=== PATIENT | male | born 1950 | race Caucasian/White ===

== ENCOUNTER → 2016-04-16 | Outpatient (CLI) | payer OTHER ==
[~2016-04-16] MED LIST: ATOR80TA PO; CLON0.5T3 PO; GLC/500 PO; HYDR25TA4 PO; LISI-461 PO; MELO15TA4 PO; PRAM0.129 PO; PRLSR20 PO; RABE20TA5 PO; SUMA6KIT; TADA5TAB11 PO; TAMS0.4C38 PO; TRAZ150T64 PO; VALA500T60 PO; [UNRECOGNIZED DRUG - OTHER] TOP
--- NOTE | 2016-04-17 05:10 | PAP/PSG TECHNICIAN REPORT ---
[facility] Locomotive Firer Polysomnogram Report Study name: None Report date: 04/17/2016 Study date: 04/16/2016 Referring Physician: DR. HINES Name: BERNARD GARCIA Interpreting Physician: Bernard Hines M.D. Date of : 1950 Locomotive Firer: Yashira Montes De Oca [facility]. Sex: Male Age: 65 Study Type: PSG Weight: 197 lbs 16.5 in Height: 65 years, Height 5' 4.5" Neck Circum: BMI: 33.29 Medications: AMOXICILLIN 500 MG, BACLOFEN 10 MG, CIALIS 5 MG, CLARITIN 10 MG, CLONAZEPAM 1 MG, DIPEHNOXYLATE-ATROPINE 2.5-0.025 MG, FLOMAX 0.4 MG, FLONASE, HYDROCHLOROTHIAZIDE 25 MG, KETOCONAZOLE 2% SHAMPOO, LIDOCAINE 5% PATCH, LIPITOR 20 MG, LISINOPRIL 10 MG, MELOXICAM 15 MG, METFORMIN 500 MG, NEFAZODONE 100 MG, OMEPRAOZLE 40 MG, PRAMIPEXOLE 0.25 MG, SUMAVEL DOSEPRO, TRAZODONE 100 MG, VALTREX 500 MG, VERAPAMIL 120 MG Patient History 65 yr-old male here for a baseline study. He has a history of migraines, daytime sleepiness, and some snoring. His [place] scale is The test was started on room air. ETCO2 testing was not utilized during this study. Room 1 Parameters Monitored NPSG: E1-M2, E2-M1, Fp1-M2, Fp2-M1, F3-M2, F4-M2, F4-M1, C3-M2, C4-M2, C4-M1, O1-M2, O2-M2, O2-M1, T3-M2, T4-M1, P3-M2, P4-M1, CHIN1, CHIN2, HR, EKG, Legs, PFLOW, SNOR, FLOW, CFLOW, Tidal Volume, THOR, ABDO, SpO2, PLTH, CPRESS, ETCO2 Wave, ETCO2, pH Sleep Architecture Sleep Stages Time at Lights Off 9:34:03 PM STAGES Time (min.) TST (%) Time at Lights On 5:02:33 AM Wake 186.0 -- Total Recording Time (TRT) 448.50 min. N1 42.0 16 Total Sleep Period (TSP) 277.0 min. N2 220.5 84 Total Sleep Time (TST) 262.5min. N3 0.0 0 Awake Time 186.0 min. REM 0.0 0 Wake after Sleep Onset 148.5 min. Sleep Efficiency (SE) 59 % Sleep Onset Latency (LATOYA) 37.5 min. Number of Stage 1 Shifts None Awakenings 19 Stage Changes 82 Number of REM periods N/A REM 0.0 0 REM Latency NONE min. NREM 262.5 100 Body Position Analysis Supine Right Left Side Prone Vertical Total Sleep Time (min.) 265.0 73.0 79.6 152.63 0.0 0.0 Total Sleep Time (%) 42% 28% 30% 58 0% N/A% Total Sleep Time REM (min.) 0.0 0.0 0.0 None 0.0 0.0 Total Sleep Time NREM (min.) 109.9 73.0 79.6 None 0.0 0.0 Intermittent Wake (min.) 155.1 28.8 2.1 None 0.0 0.0 Total Sleep Period (%) 43% None None None None None Arousals Myoclonus (PLM) * Events Count Index Events Count Index Spontaneous 18 4 Events Awake (PLMW) 172 55.5 Respiratory 3 0.7 Events Asleep w/ Arousal (PLMA) 21 4.8 PLM 21 5 Events Asleep w/o Arousal (PLMS) 45 10.3 Snoring 3 1 Total Asleep 66 15.1 Total 45 10 Total 238 32 Respiratory Analysis * CA OA MA CH H RERA Total Count 0 0 0 0 6 0 6 Index 0.0 0.0 0.0 0 1.4 0 1.4 Mean Duration 0.0 0.0 0.0 0.00 17.4 0.0 17.4 Longest Duration 0.0 0.0 0.0 0.00 0.0 0.0 22.3 Respiratory Event Summary Total Supine ~Supine Right Left Prone REM NREM Apneas Count 0 0 0 0 0 N/A N/A 0 Index 0.0 0 0 0.0 0.0 N/A N/A 0 Hypopneas (4% Desat) Count 6 5 1 0 1 N/A N/A 6 Index 1.4 2.7 0 0.0 0.8 N/A N/A 1.4 Apneas & All Hypopneas Count 6 5 1 0 1 N/A N/A 6 Index 1.4 3 0 0 1 N/A N/A 1.4 Respiratory Events (Plastering Supervisor+All Hyp+RERA) Count 6 5 1 0 1 N/A N/A 6 Index 1.4 3 0 0.0 0.8 N/A N/A 1.4 Respiratory Related Arousal Count 3 5 0 0 0 N/A N/A 3 Index 0.7 2 0 0 0 N/A N/A 1 Snoring Analysis Supine Right Left Prone REM NREM Total Snore duration 0.9 min Snores count 10 26 7 N/A N/A 43 43 Snore mean duration 1.3 Sec Snores index 5 21 5 N/A N/A 9.8 9.8 TST with snoring (%) 0.4% Desaturation Event Summary: Minimum %SpO2 Event Count Mean/Min/Max Duration(sec.) Desaturation Index % Time In Bed > 90 21 27.3 / 6.8 / 60.0 3.1 92.9 86 - 90 0 N/A 0.0 7.1 81 - 85 0 N/A 0.0 0.0 76 - 80 0 N/A 0.0 0.0 71 - 75 0 N/A 0.0 0.0 66 - 70 0 N/A 0.0 0.0 61 - 65 0 N/A 0.0 0.0 56 - 60 0 N/A 0.0 0.0 51 - 55 0 N/A 0.0 0.0 < 50 0 N/A 0.0 0.0 Total REM NREM Awake <50% 0.0 min. 0.0 min. 0.0 min. 0.0 min. 51 - 60% 0.0 min. 0.0 min. 0.0 min. 0.0 min. 61 - 70% 0.0 min. 0.0 min. 0.0 min. 0.0 min. 71 - 80% 0.0 min. 0.0 min. 0.0 min. 0.0 min. 81 - 90% 31.0 min. 0.0 min. 29.1 min. 1.9 min. 91 - 100% 406.4 min. 0.0 min. 233.2 min. 173.2 min. Average 92 0 92 93 Minimum SpO2 86 N/A 86 87 Desaturation Event Index 2.8 0.0 3.0 2.6 # Desat. Events below 89% 2 N/A 1 1 Time(%) with Saturation below 89% 0.1 0.0 0.1 0.1 Time(min.) with Saturation below 89% 0.7 0.0 0.3 0.3 Time (mins) REM (mins) NREM (mins) % of TST SpO2 Below 90% 7 N/A N7 0.4 SpO2 Below 88% 1 0 0 0 Heart Rate Analysis Min (bpm) Max (bpm) Average (bpm) Awake 70 88 77 NREM 66 83 73 REM N/A N/A N/A Overall 66 83 73 Supplemental O2 Values Minimum O2 level: None Value Start Time End Time Locomotive Firer Comments Mr. Garcia slept in the right, left, and supine positions. No cardiac arrhythmias were noted. Some PLMs were noted. No bruxism noted. Very little snoring was noted but was scored as a 1 on a scale of 1 through 5. (0=no snoring, 5=snoring loud enough to be heard through a closed door or down the carpenter way) He awoke to use the restroom one time during the night. Mr. Garcia stated that he slept about the same as usual. The final report will be interpreted and signed by a sleep physician. The completed physician report will then be placed in the patient medical record. Therapy (cm H2O) 0 TIB (min.) 448.5 TST (min.) 262.5 Sleep Onset (min.) 37.5 REM Onset From Sleep (min.) NONE Sleep Efficiency % 59 Wakefulness (%) 41 Wakefulness (min.) 186.0 NREM 1 (%) 16 NREM 1 (min.) 42.0 NREM 2 (%) 84 NREM 2 (min.) 220.5 NREM 3 (%) 0 NREM 3 (min.) 0.0 REM (%) 0 REM (min.) 0.0 # Arousals 45 Arousal Index 10 # Snore 43 Snore Index 9.8 AHI 1.4 AHI Supine 3 AHI Non-Supine 0 NREM AHI 1.4 REM AHI N/A RDI 1.4 # Obstructive Apnea 0 # Central Apnea 0 # Mixed Apnea 0 # Hypopneas 6 RERAs 0 Total Respiratory Events 6 Time Below SpO2 89% (min.) 0.3 Mean NREM SpO2 (%) 92 Mean REM SpO2 (%) N/A Mean Sleep SpO2 (%) 92 Min NREM SpO2 (%) 86 Min REM SpO2 (%) N/A Position Supine (min.) 265.0 Position Non-supine (min.) 152.6 LM Index Sleep 15.1 LM Index NREM 15.1 LM Index REM N/A Mean Heart Rate (bpm) 73 Min Heart Rate (bpm) 66
--- NOTE | 2016-04-18 12:09 | POLYSOMNOGRAPH REPORT ---
CLINICAL DATA: A 65-year-old male with history of migraine headaches, daytime sleepiness and loud snoring, referred to the sleep lab for evaluation of possible sleep apnea by Dr. Silva and myself. SLEEP ARCHITECTURE: Total sleep period was 277 minutes. Total sleep time was 262.5 minutes, all non-REM sleep. Sleep latency was delayed at 37.5 minutes. REM was not achieved. Sleep efficiency was severely reduced at 59%. Awake after sleep onset was 148.5 minutes. Sleep consisted of stage N1 of 16%, stage N2 of 84%. AROUSAL DATA: 45 arousals were recorded for an index of 10 per hour. PERIODIC LIMB MOVEMENTS DATA: 66 limb movements during sleep were noted for an index of 15.1 per hour with arousal index of 4.8 per hour. RESPIRATORY DATA: There was no evidence of clinically significant sleep apnea seen. The AHI was 1.4. There were 6 hypopneic episodes. The mean duration of hypopnea was 17.4 seconds. OXIMETRY DATA: No significant hypoxemia was seen. The oxygen lian was 88% during non-REM sleep. Mean saturation was 92%. ELECTROCARDIOGRAM: Heart rates ranged from 66 to 83 beats per minute. No arrhythmias were noted. PROGRAM DIRECTOR SCOUTING'S COMMENTS: The patient slept in the right, left, and supine positions. No bruxism was noted. Snoring was mild, rated 1 on a scale of 1 through 5. The patient awoke to use the restroom once through the night. He awoke early in the morning and then could not get back to sleep. IMPRESSION: No evidence of clinically significant sleep apnea/hypopnea, nocturnal hypoxemia or abnormal limb movements during sleep to explain this patient's symptoms. RECOMMENDATIONS: The patient should continue to practice good sleep hygiene. Treatment for insomnia should be continued. Clinical correlation is needed. MIRA
--- NOTE | 2016-04-25 09:44 | CODING QUERY MEDICAL NECESSITY ---
SUPPORTING DIAGNOSIS NEEDED A supporting diagnosis is required for the test/procedure performed on this patient in order for us to be reimbursed by the patient's insurance. Please provide a supporting diagnosis for the following test/procedure listed below next to the test name along with your signature. *If there is no additional diagnosis for this patient that would support the following test/procedure please document that below next to the test/procedure. Test(s)/Procedure(s) that require a supporting diagnosis: DOS 04/16/16 * Sleep study DIAGNOSIS: Provider Signature: Date: Thank you Bere Parker [facility] Information Management Once completed, please kindly fax back to [phone] For questions please call [phone]
== END | disposition home or self-care (01) ==
LOC: C.NEUR 21:00
PROVIDERS: ATTEND Internal Medicine Pulmonary Disease
DX: F43.10 Post-traumatic stress disorder, unspecified (principal); G25.81 Restless legs syndrome; G47.19 Other hypersomnia; R53.83 Other fatigue

== ENCOUNTER → 2016-04-23 | Outpatient (CLI) | payer OTHER ==
[~2016-04-23] VITALS: Ht 165.1 cm; Wt 92.5 kg
[2016-04-23 12:20] VITALS: BP 142/92; PULSE 87; BMI 34.2
[2016-04-23 12:37] VITALS: BP 142/92; PULSE 87; Ht 165.1 cm; Wt 92.5 kg
== END | disposition home or self-care (01) ==
LOC: C.NEUR 11:50
PROVIDERS: ATTEND Internal Medicine Pulmonary Disease
DX: R53.83 Other fatigue (principal); F43.10 Post-traumatic stress disorder, unspecified; G25.81 Restless legs syndrome

== ENCOUNTER → 2016-05-01 | Outpatient (CLI) | payer OTHER ==
[2016-05-01 13:49] LABS: ESTIMATED AVERAGE GLUCOSE 143 mg/dl; HA1C FLAG Normal (Normal)
[2016-05-01 13:50] LABS: ALT/SGPT 40 U/L (12-78); BLOOD UREA NITROGEN 19 mg/dl (7-18); BUN/CREATININE RATIO 15.4 (10-20); CALCIUM 9.7 mg/dl (8.5-10.1); CARBON DIOXIDE 26 mmol/L (21-32); CHLORIDE 104 mmol/L (98-107); GLUCOSE 147 mg/dl (70-99); POTASSIUM 4.4 mmol/L (3.5-5.1); SODIUM 139 mmol/L (136-145)
[2016-05-01 13:53] LABS: ALB/GLOB RATIO 1.3 (0.9-2); ALKALINE PHOSPHATASE 74 U/L (45-117); AST/SGOT 25 U/L (15-37)
== END | disposition home or self-care (01) ==
LOC: C.LABBC 10:15
PROVIDERS: ATTEND Family Medicine
DX: I10 Essential (primary) hypertension (principal); E11.9 Type 2 diabetes mellitus without complications

== ENCOUNTER → 2016-09-23 | Outpatient (CLI) | payer OTHER ==
[~2016-09-23] MED LIST changes: +FINA5TAB PO; -RABE20TA5 PO; -VALA500T60 PO
[2016-09-23 11:34] LABS: ALT/SGPT 33 U/L (12-78); AST/SGOT 20 U/L (15-37); BLOOD UREA NITROGEN 21 mg/dl (7-18); BUN/CREATININE RATIO 17.5 (10-20); CARBON DIOXIDE 28 mmol/L (21-32); CHLORIDE 107 mmol/L (98-107); CHOLESTEROL 145 mg/dl (0-200); GLUCOSE 155 mg/dl (70-99); SODIUM 144 mmol/L (136-145); TRIGLYCERIDES 87 mg/dl (0-150); VERY LOW DENSITY LIPOPROT CALC 17 mg/dl
[2016-09-23 11:37] LABS: CALCIUM 8.9 mg/dl (8.5-10.1); ESTIMATED AVERAGE GLUCOSE 160 mg/dl; HA1C FLAG Normal (Normal)
[2016-09-23 11:42] LABS: ALB/GLOB RATIO 1.3 (0.9-2); ALKALINE PHOSPHATASE 73 U/L (45-117); CHOLESTEROL/HDL RATIO 2.8; HDL CHOLESTEROL 51 mg/dl; LDL CHOLESTEROL CALCULATED 77 mg/dl
== END | disposition home or self-care (01) ==
LOC: C.LABBC 07:52
PROVIDERS: ATTEND Family Medicine
DX: I10 Essential (primary) hypertension (principal); E78.5 Hyperlipidemia, unspecified; E11.9 Type 2 diabetes mellitus without complications; N40.1 Benign prostatic hyperplasia with lower urinary tract symptoms

== ENCOUNTER → 2016-12-17 | Outpatient (CLI) | payer OTHER ==
[~2016-12-17] MED LIST changes: -FINA5TAB PO
[2016-12-17 10:53] LABS: URINE APPEARANCE CLEAR (CLEAR); URINE BILIRUBIN NEG (NEG); URINE COLOR YELLOW; URINE EPITHELIAL CELL AUTO 0-5 /lpf (0-5); URINE NITRITE NEG (NEG); URINE SPECIFIC GRAVITY 1.024 (1.000-1.030); UROBILINOGEN NEG (NEG); ZZUR CULT IF INDIC CLEAN CATCH NO
[2016-12-17 10:54] LABS: MANUAL MICROSCOPIC REQUIRED? NO; REVIEW REQ? NO
== END | disposition home or self-care (01) ==
LOC: C.LABBC 08:50
PROVIDERS: ATTEND Internal Medicine
DX: R39.15 Urgency of urination (principal); G43.709 Chronic migraine without aura, not intractable, without status migrainosus

== ENCOUNTER → 2016-12-27 | Outpatient (CLI) | payer OTHER ==
--- NOTE | 2016-12-27 10:43 | DIAGNOSTIC IMAGING REPORT ---
RENAL ULTRASOUND CLINICAL HISTORY: Urinary frequency. BPH. COMPARISON STUDY: CT of the abdomen and pelvis March 29, 2016. TECHNIQUE: Sonography of the kidneys and the urinary bladder was performed. FINDINGS: Pre and post void sonography of the bladder was performed. Prevoid volume was 178 cc and post void volume was 29 cc. The prostate is minimally enlarged. The right kidney measures 10.2 x 5.1 x 5.2 cm and the left measures 11.9 x 6.4 x 5 cm. Anechoic renal lesions are noted consistent with cysts. A thin septation is noted within a 3.5 cm left renal cyst. There is moderate renal cortical thinning. Bilateral renal calculi are noted. There is no hydronephrosis. IMPRESSION: 1. Minimal postvoid residual of 29 cc. 2. No hydronephrosis. 3. Bilateral nephrolithiasis. 4. Multiple bilateral renal cysts. 5. Moderate renal cortical thinning. Electronically signed by: Bjorn Reyes M.D. 12/27/2016 10:42 AM Dictated Date/Time: 12/27/2016 10:39 AM
== END | disposition home or self-care (01) ==
LOC: C.ULTRBC 09:48
PROVIDERS: ATTEND Internal Medicine
DX: N40.1 Benign prostatic hyperplasia with lower urinary tract symptoms (principal); R35.0 Frequency of micturition; N20.0 Calculus of kidney; N28.1 Cyst of kidney, acquired; N28.89 Other specified disorders of kidney and ureter

== ENCOUNTER → 2017-05-06 | Outpatient (CLI) | payer OTHER ==
[~2017-05-06] MED LIST changes: +FINA5TAB PO
[2017-05-06 11:01] LABS: BASO % 0.8 %; BASO ABS # 0.05 K/uL (0-0.2); EOS % 4.9 %; HEMATOCRIT 40.8 % (42-52); HEMOGLOBIN 13.9 g/dL (14.0-18.0); IG# 0.01 K/uL (0.00-0.02); LYMPH % 22.4 %; LYMPH ABS # 1.37 K/uL (1.2-3.4); MEAN CELL VOLUME 97.6 fL (80-100); MEAN CORPUSCULAR HEMOGLOBIN 33.3 pg (25-34); MEAN CORPUSCULAR HGB CONC 34.1 g/dl (32-36); MEAN PLATELET VOLUME 11.1 fL (7.4-10.4); MONO % 11.1 %; MONO ABS # 0.68 K/uL (0.11-0.59); NEUT % 60.6 %; NEUT ABS # 3.71 K/uL (1.4-6.5); PLATELET COUNT 190 K/uL (130-400); RED CELL DISTRIBUTION WIDTH CV 13.4 % (11.5-14.5); RED CELL DISTRIBUTION WIDTH SD 47.4 fL (36.4-46.3); WHITE BLOOD COUNT 6.12 K/uL (4.8-10.8)
[2017-05-06 12:21] LABS: HEMOGLOBIN A1C 7.2 % (4.5-5.6)
[2017-05-06 15:07] LABS: ALBUMIN 3.7 gm/dl (3.4-5.0); ALT/SGPT 27 U/L (12-78); BLOOD UREA NITROGEN 16 mg/dl (7-18); CALCIUM 9.2 mg/dl (8.5-10.1); CARBON DIOXIDE 26 mmol/L (21-32); GLUCOSE 167 mg/dl (70-99); SODIUM 139 mmol/L (136-145)
[2017-05-06 15:10] LABS: ALKALINE PHOSPHATASE 74 U/L (45-117); AST/SGOT 19 U/L (15-37); TOTAL PROTEIN 6.7 gm/dl (6.4-8.2)
[2017-05-06 15:35] LABS: CREATININE RANDOM URINE 90.8 mg/dl
== END | disposition home or self-care (01) ==
LOC: C.LABBC 09:14
PROVIDERS: ATTEND Family Medicine Adult Medicine
DX: E11.9 Type 2 diabetes mellitus without complications (principal); I10 Essential (primary) hypertension; E78.5 Hyperlipidemia, unspecified; K21.9 Gastro-esophageal reflux disease without esophagitis

== ENCOUNTER → 2017-08-05 | Outpatient (CLI) | payer OTHER ==
[~2017-08-05] MED LIST changes: -HYDR25TA4 PO; -LISI-461 PO; +MELO-83 PO; -MELO15TA4 PO; +PRAM0.1212 PO; -PRAM0.129 PO; +lisinopril/hctz PO
[2017-08-05 13:57] LABS: HEMOGLOBIN A1C 7.4 % (4.5-5.6)
== END | disposition home or self-care (01) ==
LOC: C.LABBC 11:21
PROVIDERS: ATTEND Urology
DX: N40.1 Benign prostatic hyperplasia with lower urinary tract symptoms (principal); R30.0 Dysuria; E11.9 Type 2 diabetes mellitus without complications

== ENCOUNTER → 2017-11-14 | Outpatient (CLI) | payer OTHER ==
[~2017-11-14] MED LIST changes: -CLON0.5T3 PO; +KLN/5 PO; +LISI20TA55 PO; +OPTIRAY 320 IV PRN; -lisinopril/hctz PO
--- NOTE | 2017-11-14 16:09 | DIAGNOSTIC IMAGING REPORT ---
CT SCAN OF THE ABDOMEN AND PELVIS WITH IV CONTRAST CLINICAL HISTORY: Left lower quadrant abdominal pain. COMPARISON STUDY: Abdominal CT dated 05/30/2015. TECHNIQUE: Following the IV administration of 94 cc of Optiray 320, CT scan of the abdomen and pelvis is performed from the lung bases to the proximal femora. Images are reviewed in the axial, sagittal, and coronal planes. IV contrast was administered without complication. A dose lowering technique was utilized adhering to the principles of ALARA. The examination is degraded by streak artifact from extensive orthopedic spinal hardware. CT DOSE: 841.24 mGycm FINDINGS: Lung bases: The heart is normal in size and without pericardial effusion. The coronary arteries are densely calcified. Scarring/atelectasis is noted at the right lung base. There are tiny calcified granulomas. No airspace consolidation or pleural effusion is seen. Liver: The contrast-enhanced liver is normal in size, contour, and attenuation. There is no intrahepatic biliary ductal dilatation. The hepatic veins and portal veins are patent. Gallbladder: Unremarkable. Spleen: Normal in size and attenuation. Pancreas: Moderately atrophic and grossly unremarkable. Adrenal glands: Unremarkable. Kidneys: The contrast enhanced kidneys are atrophic and without hydronephrosis. The kidneys enhance symmetrically. There are at least 6 nonobstructing right renal calculi measuring up to 6 mm. At least 4 nonobstructing left or a calculi measure up to 5 mm. Bilateral renal cysts measure up to 3.7 cm. Additional subcentimeter cortical hypodensities also likely represent cysts but are too small for definitive characterization. Abdominal vasculature: The abdominal aorta is normal in course and caliber noting mild atherosclerotic calcification. Bowel: There is mild to moderate colonic diverticulosis without CT evidence of acute diverticulitis. No bowel obstruction is seen. The appendix is well-visualized and normal. Peritoneum: There is no intraperitoneal free air or abdominal ascites. Lymphadenopathy: None. Pelvic viscera: The prostate gland is mildly enlarged and heterogeneous. The bladder is normal as visualized. Skeletal structures: The skeletal structures are osteopenic. There is advanced lumbar sacral spondylosis and scoliosis with extensive multilevel thoracolumbar laminectomy change and spinal fusion. Degenerative change is also seen in the hips and sacroiliac joints. No lytic or blastic lesions are seen. IMPRESSION: 1. There are no acute infectious or inflammatory findings in the abdomen or pelvis. 2. There is mild to moderate colonic diverticulosis without CT evidence of acute diverticulitis. 3. There are numerous bilateral nonobstructing renal calculi. 4. Additional findings as above. Electronically signed by: Anton English M.D. 11/14/2017 4:07 PM Dictated Date/Time: 11/14/2017 3:59 PM
== END | disposition home or self-care (01) ==
LOC: C.CTS 12:42
PROVIDERS: ATTEND Family Medicine Adult Medicine
DX: K57.30 Diverticulosis of large intestine without perforation or abscess without bleeding (principal); N20.0 Calculus of kidney

== ENCOUNTER 2021-12-10 10:53 | Inpatient (IN) ==
--- NOTE | 2021-11-28 10:56 | Anesthesiology Consultation ---
Date of Service November 28, 2021 Assessment & Plan (1) Encounter for pre-operative examination: Chart Review Chart Review: Acceptable Risk for Surgery and Patient NOT seen in Pre Admission Testing - Check BSG AM DOS Per nursing assessment 11/27/2021, patient denies any recent travel. No known Covid infection in the past 90 days. Pt is fully vaccinated for Covid. No known Covid positive exposures or Covid related symptoms. Will leave to surgeon's discretion if preop Covid testing needed Cysto,TURP/laser litho 11/12/21= Done under [place] with LMA #4. iGel. Well seated, leak tested History Surgery Operation Date: 12/06/21 08:20 Proposed Procedures p Transurethral Resection Prostate - Ang Zepeda, Height/Weight Height: 5 ft 4 in Weight: 70.307 kg Allergies Allergy/AdvReac Type Severity Reaction Status Date / Time No Known Allergies Allergy U Verified 11/27/21 14:22 Medications Home Medications Medication Instructions Recorded Confirmed Last Taken lidocaine 5 % topical ointment 1 appln topical BID PRN Rash 09/15/18 11/27/21 Unknown multivitamin (Multiple Vitamins 1 tab PO QAM 09/15/18 11/27/21 11/11/21 19:00 tablet) ketoconazole 2 % shampoo 1 appln topical 2XWK PRN Other 02/11/19 11/27/21 11/10/21 cyanocobalamin (vitamin B-12) 1,000 mcg PO QAM 11/01/19 11/27/21 11/11/21 05:00 1,000 mcg tablet lancets (Accu-Chek Fastclix Lancet #100 ea 02/09/20 11/21/21 Unknown Drum) eluxadoline 100 mg tablet (Viberzi) 100 mg PO BID #180 tabs 03/08/20 11/27/21 11/11/21 05:00 1/2 tablet pimecrolimus 1 % topical cream 1 applic topical BID PRN Rash 06/26/20 11/27/21 Unknown metformin 1,000 mg tablet See Rx Instructions PO .COMPLEX 11/13/20 11/27/21 11/11/21 19:00 #225 tabs sumatriptan succinate 6 mg/0.5 mL 6 mg (0.5 mL) subcut .COMPLEX 90 11/28/20 11/27/21 Unknown subcutaneous solution (Imitrex) days #27 mL Accu-Chek Fastclix Lancet Drum #100 ea 04/27/21 11/21/21 Unknown (lancets) Accu-Chek Guide test strips (blood #100 ea 04/27/21 11/21/21 Unknown sugar diagnostic) vortioxetine 10 mg tablet 10 mg PO QPM 06/12/21 11/27/21 11/11/21 19:00 (Trintellix) benzonatate 200 mg capsule 200 mg PO TID PRN cough #90 caps 10/17/21 11/27/21 10/29/21 acitretin 25 mg capsule 25 mg PO QAM 10/24/21 11/27/21 11/10/21 atorvastatin 10 mg tablet 10 mg PO QPM 10/24/21 11/27/21 11/11/21 19:00 desloratadine 5 mg tablet 5 mg PO QAM 10/24/21 11/27/21 11/11/21 05:00 (Clarinex) finasteride 5 mg tablet (Proscar) 5 mg PO QAM 10/24/21 11/27/21 11/11/21 05:00 tamsulosin 0.4 mg capsule (Flomax) 0.8 mg PO QPM 10/24/21 11/27/21 11/11/21 05:00 trazodone 150 mg tablet 300 mg PO HS 10/24/21 11/27/21 11/11/21 19:00 valacyclovir 500 mg tablet 500 mg PO QAM 10/24/21 11/27/21 11/11/21 05:00 (Valtrex) baclofen 10 mg tablet See Rx Instructions .Route 11/02/21 11/27/21 Unknown .COMPLEX #270 tabs clonazepam 1 mg tablet (Klonopin) 1 mg PO BID 11/12/21 11/27/21 11/11/21 19:00 diphenoxylate-atropine 2.5 1 tab PO TID PRN diarrhea 11/12/21 11/27/21 Unknown mg-0.025 mg tablet (Lomotil) fluticasone propionate 50 See Rx Instructions .Route .COMPLEX 11/12/21 11/27/21 11/11/21 05:00 mcg/actuation nasal spray,suspension (Flonase Allergy Relief) lisinopril 20 1.5 tab PO QAM 11/12/21 11/27/21 11/11/21 05:00 mg-hydrochlorothiazide 25 mg tablet (Zestoretic) pramipexole 0.25 mg tablet See Rx Instructions .Route .COMPLEX 11/12/21 11/27/21 11/11/21 19:00 (Mirapex) galcanezumab-gnlm 120 mg/mL 120 mg subcut MONTHLY 90 days #3 mL 11/21/21 11/27/21 Unknown subcutaneous pen injector (Emgality Pen) betamethasone dipropionate 0.05 % 1 applic topical BID psoriasis 11/27/21 11/27/21 Unknown topical ointment meloxicam 15 mg tablet 15 mg PO QAM 11/27/21 11/27/21 Unknown omeprazole 40 mg capsule,delayed 40 mg PO BID 11/27/21 11/27/21 Unknown release rizatriptan 10 mg disintegrating See Rx Instructions PO .COMPLEX 11/27/21 11/27/21 Unknown tablet (Maxalt-NOTCH MACHINE OPERATOR) Past Medical History Medical History Anxiety Benign prostatic hyperplasia with urinary obstruction Cancer BASAL CELL CANCER FACE Chronic GERD Coccydynia HAS BEEN TREAT WITH RFA IN THE PAST History of blood transfusion History of stomach ulcers 50+ years ago HTN (hypertension) Hyperlipidemia IBS (irritable bowel syndrome) Ischial bursitis Lumbar degenerative disc disease Migraine Myofascial pain Post-traumatic stress disorder Restless legs syndrome Type II diabetes mellitus NIDDM Past Family History Family History Father Cardiac disorder Diabetes Prostate cancer Hypertension Mother Diabetes Hypertension Breast cancer Stroke Grandfather Myocardial infarction Denies family history of Ovarian cancer Crohn's disease Lung cancer Colorectal cancer Ulcerative colitis Past Surgical History Surgical History Cervical vertebral fusion 2014 H/O total knee replacement left knee 2016 History of colonoscopy History of esophagogastroduodenoscopy (EGD) History of eyelid surgery History of herniorrhaphy History of lithotripsy bilateral October and November 2021. still has uretral stents in bilaterally at this time. History of lumbar fusion History of tonsillectomy Hx of lithotripsy Social History Smoking Status: Never smoker Do You Dip or Chew Tobacco: No Hx Alcohol Use: Yes Alcohol type: wine alcohol intake frequency: a few times a month Hx Substance Use: No substance use type: does not use Lab Results Anesthesia Preop Results Results Anesthesia Widget: WBC 9.83 K/ul (4.8-10.8) 10/25/21 Hgb 13.6 g/dl (14.0-18.0) L 10/25/21 Hct 40.6 % (40.1-51.0) 10/25/21 Plt 295 K/uL (130-400) 10/25/21 Na 131 mmol/L (136-145) L 10/25/21 K 4.2 mmol/L (3.5-5.1) 10/25/21 Cl 98 mmol/L (98-107) 10/25/21 CO2 23 mmol/L (21-32) 10/25/21 BUN 33 mg/dl (6-23) H 10/25/21 Creat 1.39 mg/dl (0.6-1.4) 10/25/21 Glucose Level 186 mg/dl (70-99(Fasting)) H 10/25/21 POC Glucose 116 mg/dl (70-99) H 11/12/21 Testing Laboratory Results 10/24/21= URINE CULTURE: No growth Electrocardiogram Date: 10/25/21 Sinus tachycardia, rate 109 bpm Chest X-Ray Date: 10/18/21 The lungs are clear. The heart is normal in size. No pleural effusions. No pne umothorax. Scoliosis of the thoracolumbar spine. Spinal fusion hardware seen within the lower thoracic/lumbar spine. IMPRESSION: No acute process. Other Testing Abdomen/pelvis CT 10/16/21 Nonobstructive nephrolithiasis is seen bilaterally with multiple renal cysts noted. Stable perinephric stranding from prior exam. No suspicious findings in this patient with history of hematuria. Carotid doppler of Left ICA (dx: lump on carotid) 06/27/20 1. There is no sonographic evidence of hemodynamically significant stenosis in the left carotid arterial system. 2. Antegrade flow is shown in the lethargy artery. 3. The finding of palpable concern likely corresponds to the carotid bulb. No soft tissue lesion or lymphadenopathy is identified in this region
[~2021-12-10 10:53] MED LIST changes: -ATOR80TA PO; -FINA5TAB PO; -GLC/500 PO; -KLN/5 PO; -LISI20TA55 PO; +LR 15ML/HR IV SCH; -MELO-83 PO; -OPTIRAY 320 IV PRN; -PRAM0.1212 PO; -PRLSR20 PO; -SUMA6KIT; -TADA5TAB11 PO; -TAMS0.4C38 PO; -TRAZ150T64 PO; -[UNRECOGNIZED DRUG - OTHER] TOP; +cefTRIAXone SODIUM 1,000 MG in DEXTROSE 5% 50 ML IV SCH
--- NOTE | 2021-12-10 11:09 | History & Physical Bridge Note ---
Date of Service December 10, 2021 History & Physical Bridge Note I have examined the patient, reviewed the History & Physical and in the interval since the performance of the History & Physical I have noted the following changes of clinical significance: no changes noted Plan to proceed with transurethral resection of prostate.
[2021-12-10] MEDS ORDERED: PROPOFOL IV EMULSION 10 MG/ML 20 ML VIAL IV ONE (11:11)
[2021-12-10] MEDS ORDERED: fentaNYL citrate 100 MCG/2 ML VIAL ONE (11:11)
[2021-12-10] MEDS ORDERED: MIDAZOLAM HCL 1 MG/ML 2ML VIAL ONE (11:11)
[2021-12-10] MEDS ORDERED: ONDANSETRON INJ 2 MG/ML 2 ML VIAL ONE (11:11)
[2021-12-10] MEDS ORDERED: DEXAMETHASONE SOD INJ 4 MG/ML VIAL ONE (11:11)
[2021-12-10] MEDS ORDERED: ATROPINE SULFATE 0.1 MG/ML 10ML SYR IV PRN (11:37)
[2021-12-10] MEDS ORDERED: ePHEDrine sulfate 50 MG/ML AMP IV PRN (11:37)
[2021-12-10] MEDS ORDERED: ONDANSETRON INJ 2 MG/ML 2 ML VIAL IV PRN (11:37)
--- NOTE | 2021-12-10 11:44 | History & Physical Report ---
Date of Service December 10, 2021 Assessment & Plan (1) Benign prostatic hyperplasia with urinary obstruction: (2) Hematuria, microscopic: (3) Bilateral kidney stones: (4) Incontinence: Plan Significant enlargement of prostate with increasing issues. Risks and benefits discussed at length for procedure. These include bleeding, infection, injury to surrounding tissues or organs, and risks associated with anesthesia. Patient states understanding and agrees to proceed. Will sign consent and proceed. Plan for Transurethral resection of prostate. History of Present Illness Primary Care Provider: Khloe Mejia MD Patient here for procedure. No changes in medical issues. No major changes in urinary issues. Continued issues and concerns. No change in pain or discomfort. No severe fevers or chills. No chest pain or shortness of breath. Risks and benefits discussed at length for procedure. These include bleeding, infection, injury to surrounding tissues or organs, and risks associated with anesthesia. Patient and/or family states understanding and agrees to proceed. Consent and supporting information completed. Allergies Allergy/AdvReac Type Severity Reaction Status Date / Time No Known Allergies Allergy U Verified 12/10/21 11:23 Home Medications Medication Instructions Recorded Confirmed Type lidocaine 5 % topical ointment 1 appln topical BID PRN Rash 09/15/18 12/10/21 History multivitamin (Multiple Vitamins 1 tab PO QAM 09/15/18 12/10/21 History tablet) ketoconazole 2 % shampoo 1 appln topical 2XWK PRN Other 02/11/19 12/10/21 History cyanocobalamin (vitamin B-12) 1,000 mcg PO QAM 11/01/19 12/10/21 History 1,000 mcg tablet lancets (Accu-Chek Fastclix Lancet #100 ea 02/09/20 11/21/21 Rx Drum) eluxadoline 100 mg tablet (Viberzi) 100 mg PO BID #180 tabs 03/08/20 12/10/21 Rx pimecrolimus 1 % topical cream 1 applic topical BID PRN Rash 06/26/20 12/10/21 History metformin 1,000 mg tablet See Rx Instructions PO .COMPLEX 11/13/20 12/10/21 Rx #225 tabs Accu-Chek Fastclix Lancet Drum #100 ea 04/27/21 11/21/21 Rx (lancets) Accu-Chek Guide test strips (blood #100 ea 04/27/21 11/21/21 Rx sugar diagnostic) vortioxetine 10 mg tablet 10 mg PO QPM 06/12/21 12/10/21 History (Trintellix) benzonatate 200 mg capsule 200 mg PO TID PRN cough #90 caps 10/17/21 12/10/21 Rx acitretin 25 mg capsule 25 mg PO QAM 10/24/21 12/10/21 History atorvastatin 10 mg tablet 10 mg PO QPM 10/24/21 12/10/21 History desloratadine 5 mg tablet 5 mg PO QAM 10/24/21 12/10/21 History (Clarinex) finasteride 5 mg tablet (Proscar) 5 mg PO QAM 10/24/21 12/10/21 History tamsulosin 0.4 mg capsule (Flomax) 0.8 mg PO QPM 10/24/21 12/10/21 History trazodone 150 mg tablet 300 mg PO HS 10/24/21 12/10/21 History valacyclovir 500 mg tablet 500 mg PO QAM 10/24/21 12/10/21 History (Valtrex) baclofen 10 mg tablet See Rx Instructions .Route 11/02/21 12/10/21 Rx .COMPLEX #270 tabs clonazepam 1 mg tablet (Klonopin) 1 mg PO BID 11/12/21 12/10/21 History diphenoxylate-atropine 2.5 1 tab PO TID PRN diarrhea 11/12/21 12/10/21 History mg-0.025 mg tablet (Lomotil) fluticasone propionate 50 See Rx Instructions .Route .COMPLEX 11/12/21 12/10/21 History mcg/actuation nasal spray,suspension (Flonase Allergy Relief) lisinopril 20 1.5 tab PO QAM 11/12/21 12/10/21 History mg-hydrochlorothiazide 25 mg tablet (Zestoretic) pramipexole 0.25 mg tablet See Rx Instructions .Route .COMPLEX 11/12/21 12/10/21 History (Mirapex) galcanezumab-gnlm 120 mg/mL 120 mg subcut MONTHLY 90 days #3 mL 11/21/21 12/10/21 Rx subcutaneous pen injector (Emgality Pen) betamethasone dipropionate 0.05 % 1 applic topical BID psoriasis 11/27/21 12/10/21 History topical ointment meloxicam 15 mg tablet 15 mg PO QAM 11/27/21 12/10/21 History omeprazole 40 mg capsule,delayed 40 mg PO BID 11/27/21 12/10/21 History release rizatriptan 10 mg disintegrating See Rx Instructions PO .COMPLEX 11/27/21 12/10/21 History tablet (Maxalt-[employer]) PRN Headache sumatriptan succinate 6 mg/0.5 mL 6 mg subcut .COMPLEX PRN Headache 12/10/21 12/10/21 History subcutaneous solution (Imitrex) Past Med/Surg History Medical History Anxiety Benign prostatic hyperplasia with urinary obstruction Cancer BASAL CELL CANCER FACE Chronic GERD Coccydynia HAS BEEN TREAT WITH RFA IN THE PAST History of blood transfusion History of stomach ulcers 50+ years ago HTN (hypertension) Hyperlipidemia IBS (irritable bowel syndrome) Ischial bursitis Lumbar degenerative disc disease Migraine Myofascial pain Post-traumatic stress disorder Restless legs syndrome Type II diabetes mellitus NIDDM Surgical History Cervical vertebral fusion 2014 H/O total knee replacement left knee 2015 History of colonoscopy History of esophagogastroduodenoscopy (EGD) History of eyelid surgery History of herniorrhaphy History of lithotripsy bilateral October and November 2021. still has uretral stents in bilaterally at this time. History of lumbar fusion History of tonsillectomy Hx of lithotripsy Family History Father Cardiac disorder Diabetes Prostate cancer Hypertension Mother Diabetes Hypertension Breast cancer Stroke Grandfather Myocardial infarction Denies family history of Ovarian cancer Crohn's disease Lung cancer Colorectal cancer Ulcerative colitis Social History Smoking Status: Never smoker Second Hand Exposure: No; Do You Dip or Chew Tobacco: No; Tobacco Cessation Education Requested by Patient: No Hx Alcohol Use: Yes (occassionally) Alcohol type: wine Alcohol Intake Frequency: 2-4 x/Month Hx Substance Use: No Preferred Language: Luxembourgish Communication Ability: Effective Visual Impairment: No Limitations Hearing Ability: Normal 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 Required: No Beliefs That Will Affect Care: None marital status: Current Living Situation: Spouse current occupational status: retired How many Children do You have: 0 Other Information That Helps Us Care for You: No Feels Safe at Home: Yes Safety Concerns: Feels Safe At This Time Childhood Exposure to Second-Hand Smoke: Yes caffeine: Yes Dental Care, Regularly: Yes Physical Activity Frequency: Daily Seatbelt Use: always Sunscreen Use: Yes Assistive Devices: None Review of Systems All systems reviewed & are unremarkable except as noted in HPI & below Physical Exam Physical Exam: General: Alert/Arousable. No Acute illness. . HEENT: Inspection normal. Normal inspection of face. Normal inspection of neck. Psychologic: Normal affect/No change in mentation. Respiratory: No use of accessory muscles. No respiratory changes or exacerbation or changes with tachypnea or dyspnea. Cardiovascular: No tachycardia Skin: [place] and Dry. No new rashes or visible lesions. Abdomen: Normal inspection. No guarding. PG Care Time/CCT Total # of Minutes Spent Total Time Spent with Patient: Total time spent is greater than 50% in coordination of care (as documented) at patient's floor/unit and/or counseling patient: Coding Level of Care Code None Diagnoses Benign prostatic hyperplasia with urinary obstruction N40.1; N13.8 Hematuria, microscopic R31.29 Bilateral kidney stones N20.0 Incontinence R32
[2021-12-10] MEDS ORDERED: KETOROLAC 30 MG/ML VIAL ONE (12:21)
[2021-12-10] MEDS ORDERED: ACETAMINOPHEN 1000 MG/100 ML IV IV ONE (12:22)
--- NOTE | 2021-12-10 12:48 | Operative Report ---
[facility] Post Operative Report Pre & Post Diagnosis Operation Date: 12/10/21 13:10 Pre-Op Diagnosis: Benign prostatic hyperplasia with Urinary Obstruction Post-Op Diagnosis: Benign prostatic hyperplasia with Urinary Obstruction I identified the patient and participated in the time-out.: Yes Procedure Operation Date: 12/10/21 13:10 Actual Procedures p Transurethral Resection of Prostate with Bilateral Stent Removal(Not Applicable) - Ang Zepeda DO Surgeon Ang Zepeda, II, DO Special Effects Designer None Estimated Blood Loss 10 Findings Consistent with Post-Op Diagnosis Large Prostate with obstruction. Specimens Prostate adenoma. Drains 22Fr [address] Catheter Anesthesia Type General Complications none Disposition Disposition: Recovery Room Indications Patient with obstruction due to prostate enlargement. Risks and benefits discussed at length. Description of Procedure Patient was consented and brought back to the operating room. Patient was placed under anesthesia in the supine position and moved to the dorsal lithotomy position. Patient was prepped and draped in the regular sterile fashion. A time out was completed. A 30degree Cystoscope was placed into the bladder and the entire bladder was examined. The UO's were identified as well as the bladder neck, trigone, dome, and the other important landmarks. The prostatic urethra and large lobes/adenoma was assessed and the veru and bladder neck identified and area/size was assessed. The resection scope was placed and the fine bipolar loop was selected. Starting at the 5 and 7 o'clock positions, a channel was created from bladder neck to the veru. The lateral lobes were then resected starting at approx 1 and 11 o'clock and moving down to the channel. This resection was taken down to capsule fibers. A small amount of tissue was resected at the 12 o'clock position. The Specimen was removed and sent for analysis. The resection bed and any bleeding areas were fulgurated/cauterized and the entire area inspected. All bleeding was controlled. The bladder was inspected a final time. The bladder was emptied and irrigated. All specimen and debris was removed. The scope was removed with the bladder partially full. A catheter was placed and balloon elevated. This was easily irrigated. The patient was cleaned, aroused from anesthesia, and transferred to the pacu in stable condition having tolerated the procedure well with no complications. I was present and participated in all aspects of the procedure. The patient will be monitored in the PACU until transferred. Plan to keep catheter for approx 10 days with removal in office. Will monitor overnight with continuous bladder irrigation. I attest to the content of the Intraoperative Record and any orders documented therein. Any exceptions are noted below.
[2021-12-10] MEDS: fentaNYL citrate 100 MCG/2 ML VIAL IV PRN ×2 (13:00→13:05)
[2021-12-10] MEDS: HYDROmorphone INJ 2 MG/ML SYR/VIAL IV PRN ×2 (13:48→14:22)
[2021-12-10] MEDS ORDERED: SUMAtriptan succinate 6 MG/0.5 ML VIAL SQ PRN (14:11)
[2021-12-10] MEDS ORDERED: DIPHENOXYLATE/ATROPINE 2.5/0.025MG TAB PO PRN (14:11)
[2021-12-10] MEDS ORDERED: LIDOCAINE 5% OINT 30 GM TUBE TOP PRN (14:11)
[2021-12-10] MEDS ORDERED: PHENAZOPYRIDINE HCL 200 MG TAB PO PRN (14:11)
[2021-12-10] MEDS ORDERED: MoRPHine SULFATE 2 MG/ML CARP IV PRN (14:11)
[2021-12-10] MEDS ORDERED: BENZONATATE 100 MG CAPSULE PO PRN (14:11)
--- NOTE | 2021-12-10 14:44 | Anesthesiology Progress Note ---
Date of Service December 10, 2021 Anesthesia Post Procedure Vital Signs Vital Signs: Temp Pulse Resp BP Pulse Ox O2 Del Method O2 Flow Rate 12/10/21 14:15 83 16 109/76 97 Room Air 12/10/21 14:00 75 14 107/73 96 Room Air 12/10/21 13:45 78 14 116/77 100 Nasal Cannula 2 12/10/21 13:20 79 15 117/79 98 Nasal Cannula 2 12/10/21 13:10 83 16 120/77 100 Nasal Cannula 2 12/10/21 13:00 83 18 123/80 100 Nasal Cannula 4 12/10/21 13:30 36.1 C L 78 17 118/76 99 Nasal Cannula 2 12/10/21 12:51 36.4 C L 87 13 120/88 100 Nasal Cannula 4 12/10/21 11:35 36.7 C 97 H 18 129/91 97 Room Air Pain Intensity Penis: Pain Intensity: 6 Transfer of Care Handoff Completed per policy Notes Mental Status: alert / awake / arousable and participated in evaluation Patient Amnestic to Procedure: Yes Nausea / Vomiting: adequately controlled Pain: adequately controlled Airway Patency, RR, SpO2: stable & adequate BP & HR: stable & adequate Hydration State: stable & adequate Anesthetic Complications: no major complications apparent and Pt Satisfied with anesthetic care
[2021-12-10] MEDS: SODIUM CHLORIDE 0.9% 1000ML 1,000 ML IV SCH (16:01)
[2021-12-10 16:33] LABS: Hematocrit (blood only) 34.5 % (40.1-51.0); Hemoglobin 11.4 g/dl (14.0-18.0); Mean Corpuscular Hemoglobin 32.7 pg (25.0-34.0); Mean Corpuscular Volume 98.9 fL (80.0-100.0); Mean Platelet Volume 10.1 fL (9.4-12.4); Platelet Count 222 K/uL (130-400); RDW Coefficient of Variation 12.7 % (11.5-14.5); RDW Standard Deviation 45.7 fL (36.4-46.3); Red Blood Count 3.49 M/uL (4.63-6.08); White Blood Count 8.13 K/ul (4.8-10.8)
[2021-12-10 16:53] LABS: Albumin Globulin Ratio 1.7 (0.9-2); BUN Creatinine Ratio 15.8 (10-20); Bilirubin,Total 0.4 mg/dl (0.2-1.0); Calcium 9.4 mg/dl (8.5-10.1); Creatinine Clr Calc Pharmacy 37.3 ml/min; Est GFR (African American) 52.7 ml/min; Est GFR (Non-African American) 45.4 ml/min; Globulin 2.4 gm/dl (2.5-4.0); Potassium 4.7 mmol/L (3.5-5.1); Total Protein 6.4 gm/dl (6.0-8.3)
[2021-12-10 17:15] LABS: Basophils # (auto) 0.03 K/uL (0-0.2); Basophils % (auto) 0.4 %; Eosinophils # (auto) 0.02 K/uL (0-0.50); Eosinophils % (auto) 0.2 %; Immature Granulocytes # (auto) 0.04 K/uL (0.00-0.02); Immature Granulocytes % (auto) 0.5 %; Lymphocytes % (auto) 6.2 %; Monocytes # (auto) 0.09 K/uL (0.24-0.82); Monocytes % (auto) 1.1 %; Neutrophils # (auto) 7.45 K/uL (1.4-6.5); Neutrophils % (auto) 91.6 %
[2021-12-10] MEDS: oxyCODONE/ACETAMINOPHEN 5mg/325mg TAB PO PRN ×2 (19:05→23:42)
[2021-12-10] MEDS: clonazePAM 1 MG TAB PO SCH (20:37)
[2021-12-10] MEDS: ceFAZolin 2000MG 2,000 MG/15 ML SYR IV SCH (20:38)
[2021-12-10] MEDS: PANTOprazole 40 MG TAB PO SCH (20:39)
[2021-12-10] MEDS: DOCUSATE SODIUM 100 MG CAP PO SCH (20:39)
[2021-12-10] MEDS ORDERED: ATORVASTATIN 10 MG TAB PO SCH (21:00)
[2021-12-10] MEDS ORDERED: traZODone HCL 100 MG TAB PO SCH (21:00)
[2021-12-10] MEDS ORDERED: TAMSULOSIN HCL 0.4 MG CAP PO SCH (21:00)
[2021-12-11] MEDS: SODIUM CHLORIDE 0.9% 1000ML 1,000 ML IV SCH (04:22)
[2021-12-11] MEDS: ceFAZolin 2000MG 2,000 MG/15 ML SYR IV SCH ×2 (04:23→13:23)
[2021-12-11 06:25] LABS: Hematocrit (blood only) 29.3 % (40.1-51.0); Mean Corpuscular Hemoglobin 33.1 pg (25.0-34.0); Mean Corpuscular Hgb Conc 34.1 g/dL (32.0-36.0); Mean Platelet Volume 10.2 fL (9.4-12.4); Platelet Count 199 K/uL (130-400); RDW Coefficient of Variation 12.5 % (11.5-14.5); RDW Standard Deviation 44.3 fL (36.4-46.3); Red Blood Count 3.02 M/uL (4.63-6.08); White Blood Count 10.12 K/ul (4.8-10.8)
[2021-12-11 07:06] LABS: Albumin Globulin Ratio 1.9 (0.9-2); Albumin Level 3.7 gm/dl (3.4-5.0); BUN Creatinine Ratio 17.8 (10-20); Bilirubin,Total 0.3 mg/dl (0.2-1.0); Calcium 8.6 mg/dl (8.5-10.1); Creatinine Clr Calc Pharmacy 37.3 ml/min; Est GFR (African American) 52.7 ml/min; Est GFR (Non-African American) 45.4 ml/min; Potassium 4.4 mmol/L (3.5-5.1); Total Protein 5.7 gm/dl (6.0-8.3)
--- NOTE | 2021-12-11 08:15 | Urology Progress Note ---
Date of Service December 11, 2021 Assessment & Plan (1) Benign prostatic hyperplasia with urinary obstruction: (2) Hematuria, microscopic: (3) Bilateral kidney stones: (4) Incontinence: Plan Postop day 1 status post TURP. Patient has been recovering well. Is slowly increasing activity. Patient's normal medications are going to be restarted patient will increase activity and diet throughout the day. If patient continues to improve and does not have any major issues will likely be able to discharge later today. Has CBI was turned off by myself this morning we will monitor with nurse practitioners over the rest of the day and if it remains clear can likely be clamped and the patient sent home with the catheter plug in the irrigation port. Patient will be sent home with a bed bag as well as a leg bag for management of urine. We will likely maintain catheter for approximately 10 days. We will have patient follow-up in the office for pathology and catheter removal. Reviewed expectations for recovery. We will plan to continue to monitor Admission and Anticipated Discharge Date Admission Date: December 10, 2021 Subjective Postop from urologic surgery. Patient with issues related to bladder outlet obstruction with large median lobe. Patient had multiple stones that were treated over the summer. Was set up for TURP. Patient has not had major issues and has been tolerating catheter. Has increased activity and patient has been tolerating well, but is having some pain and discomfort. Has been having some bladder discomfort at times. Has tolerated catheter. Has not had severe pain or uncontrollable pain. Patient has been ambulating. Has not had bowel movement or major change. No new nausea or vomiting. Had tolerated anesthesia without major problems Tolerated liquid diet postoperatively. CBI has been running without major issue and currently is at a very slow drip with a very mild light pink color Review of Systems Review of Systems: All systems reviewed & are unremarkable except as noted in HPI & below Physical Exam Physical Exam: General: Alert in no acute distress. HEENT: Normocephalic Atraumatic. Inspection normal. Cranial Nerves 2-12 Grossly intact. Normal inspection of face. Normal inspection of neck. Psychologic: Normal affect. Respiratory: Nonlabored. No use of accessory muscles. No tachypnea or dyspnea. Cardiovascular: No tachycardia Skin: [place] and Dry. No rashes or visible lesions. Extremities/Lymphatics: No edema Abdomen: Appropriately tender. Mild distended. No rebound or guarding. : Urine light pink with CBI on a very low drip Results & Data ([facility]) Vital Signs (Past 12 Hours) Vital Signs Temp Pulse Resp BP Pulse Ox O2 Del Method 12/11/21 07:28 36.5 C 64 16 114/74 98 Room Air 12/11/21 02:30 62 16 106/68 97 Room Air 12/10/21 22:30 36.3 C L 60 16 99/62 L 97 Room Air PG Care Time/CCT Total # of Minutes Spent Total Time Spent with Patient: Total time spent is greater than 50% in coordination of care (as documented) at patient's floor/unit and/or counseling patient: Coding Level of Care Code 86440 Subseq Hosp Care Lvl 2 Diagnoses Benign prostatic hyperplasia with urinary obstruction N40.1; N13.8 Hematuria, microscopic R31.29 Bilateral kidney stones N20.0 Incontinence R32
[2021-12-11] MEDS: clonazePAM 1 MG TAB PO SCH (08:21)
[2021-12-11] MEDS: DOCUSATE SODIUM 100 MG CAP PO SCH (08:21)
[2021-12-11] MEDS: PANTOprazole 40 MG TAB PO SCH (08:23)
[2021-12-11] MEDS ORDERED: metFORMIN HCL 500 MG TAB PO SCH ×2 (09:00→14:00)
[2021-12-11] MEDS ORDERED: FINASTERIDE 5 MG TAB PO SCH (09:00)
[2021-12-11] MEDS ORDERED: CYANOCOBALAMIN (B-12) 500 MCG TABLET PO SCH (09:00)
[2021-12-11] MEDS ORDERED: LISINOPRIL/HCTZ 20/25MG 1 TAB PO SCH (09:00)
[2021-12-11] MEDS ORDERED: MULTIVITAMIN TAB PO SCH (09:00)
--- NOTE | 2021-12-18 14:46 | Discharge Summary ---
Date of Service December 18, 2021 Admission HPI Per Admitting Provider Patient here for procedure. No changes in medical issues. No major changes in urinary issues. Continued issues and concerns. No change in pain or discomfort. No severe fevers or chills. No chest pain or shortness of breath. Risks and benefits discussed at length for procedure. These include bleeding, infection, injury to surrounding tissues or organs, and risks associated with anesthesia. Patient and/or family states understanding and agrees to proceed. Consent and supporting information completed. Admission Exam Per Admitting Provider See H&P Principal Diagnosis BPH with obstruction Discharge Exam General: Alert in no acute distress. HEENT: Normocephalic Atraumatic. Inspection normal. Psychologic: Normal affect. Skin: [place] and Dry. No rashes or visible lesions. Abdomen: Soft Non-distended. No rebound or guarding. Discharge Data Allergies Allergy/AdvReac Type Severity Reaction Status Date / Time No Known Allergies Allergy U Verified 12/10/21 11:23 Procedures Performed Operation Date: 12/06/21 12:50 <No data on this case meets the specified criteria> Operation Date: 12/10/21 13:10 Actual Procedures p Transurethral Resection Prostate with Bilateral Stent Removal(Not Applicable) - Ang Zepeda, DO Hospital Course (1) Benign prostatic hyperplasia with urinary obstruction: (2) Hematuria, microscopic: (3) Bilateral kidney stones: (4) Incontinence: Plan Postop day 1 status post TURP. Patient has been recovering well. Is slowly increasing activity. Patient's normal medications are going to be restarted patient will increase activity and diet throughout the day. If patient continues to improve and does not have any major issues will likely be able to discharge later today. Has CBI was turned off by myself this morning we will monitor with nurse practitioners over the rest of the day and if it remains clear can likely be clamped and the patient sent home with the catheter plug in the irrigation port. Patient will be sent home with a bed bag as well as a leg bag for management of urine. We will likely maintain catheter for approximately 10 days. We will have patient follow-up in the office for pathology and catheter removal. Reviewed expectations for recovery. We will plan to continue to monitor Total Time Total Time Spent Total Time Spent (In Minutes): 10 minutes Total Time Includes: Examination of the Patient, Discharge Planning, Medication Reconciliation and Communication With Other Providers Discharge Plan Discharge Items Patient Disposition: Home - Self-Care Reason For Visit: BPH with Urinary Obstruction Discharge Diagnosis: BPH with urinary obstruction Activity: Per Instructions section Lifting: No more than 10 pounds Bathing Comment: Okay to shower after discharge, no tub bath or soaking Sexual Activity: Wait until after follow-up appointment Exercise/Sports: Wait until after follow-up appointment Driving/Machine Use: No driving while taking prescription pain medication Non-emergency contact: Surgeon and Urologist Call non-emergency contact if: you have any medication questions, your pain is not controlled and you have a fever Follow-up/Referrals: Ang Zepeda DO [Physician] - (Office will call patient with an appointment date and time) Khloe Mejia MD [Primary Care Provider] - [facility],Nurse [FAKE FOR SCHEDULES] - 12/21/21 9:30 am Diet: Carb Consistent or DM2 Addtl Attending Provider Instructions: Please take all medications as prescribed and keep all follow-ups as scheduled. Please call our office at [phone] with any questions, concerns or need to reschedule appointments for any reason. We are happy to assist you. Tips for your recovery at home: Dont be alarmed by brownish or reddish blood or clots in your urine. This is a result of the procedure. This may occur off and on for weeks to months after the procedure but should continue to improve. Drink plenty of fluids during the day (enough to keep your urine very light colored). This will help keep a healthy flow of urine. Do not lift >25 lbs until your followup Avoid constipation. Please use a stool softener (Colace) for the first two weeks after your procedure Be sure to finish the antibiotics as prescribed. If you go home with a catheter, please wash tubing where it enters your body twice daily with mild soap (Dove or Dial). Once your catheter is removed, expect some blood in your urine and some burning when you urinate. You should have an appointment to have this removed, if you do not please call our office to arrange. Pending Studies at Discharge: Yes Studies:: Pathology Stand-Alone Forms: [employer], Smoking Cessation Medications and DC Order Prescriptions: New cephalexin 500 mg capsule 500 mg PO BID 10 Days Qty: 20 0RF docusate sodium [Colace] 100 mg capsule 100 mg PO BID Qty: 60 0RF Rx Instructions: Take twice daily for 2 weeks, then as needed for constipation. oxycodone-acetaminophen [Percocet] 5-325 mg tablet 1 tab PO TID PRN (Reason: pain) Qty: 10 0RF Continued (DME) lancets [Accu-Chek Fastclix Lancet Drum] Misc See Rx Instructions .ROUTE .MEDSUPPLY Qty: 100 5RF Rx Instructions: Test once daily Viberzi 100 mg tablet 100 mg PO BID Qty: 180 2RF Rx Instructions: must administer with a meal/food metformin 1,000 mg tablet See Rx Instructions PO .COMPLEX Qty: 225 3RF Rx Instructions: TAKE 1 TABLET IN THE MORNING, TAKE ONE-HALF (1/2) TABLET AT LUNCH AND TAKE 1 TABLET IN THE EVENING PO ; (DME) lancets [Accu-Chek Fastclix Lancet Drum] Misc See Rx Instructions .Route Qty: 100 3RF Rx Instructions: use to test once daily (DME) Accu-Chek Guide test strips Strip See Rx Instructions .Route Qty: 100 3RF Rx Instructions: use to test once daily baclofen 10 mg tablet See Rx Instructions .ROUTE .COMPLEX Qty: 270 3RF Dose Instruction: TAKE 1 TABLET EVERY 8 HOURS NEEDED FOR PAIN Rx Instructions: TAKE 1 TABLET EVERY 8 HOURS NEEDED FOR PAIN lidocaine 5 % ointment 1 appln TOP BID PRN (Reason: Rash) multivitamin [Multiple Vitamins] tablet 1 tab PO QAM ketoconazole 2 % shampoo 1 appln TOP 2XWK PRN (Reason: Other) Trintellix 10 mg tablet 10 mg PO QPM cyanocobalamin (vitamin B-12) 1,000 mcg tablet 1,000 mcg PO QAM pimecrolimus 1 % cream 1 applic TOP BID PRN (Reason: Rash) Rx Instructions: Apply to areas of the groin twice daily as directed. Emgality Pen 120 mg/mL pen injector 120 mg subcut MONTHLY 90 Days Qty: 3 3RF benzonatate 200 mg capsule 200 mg PO TID PRN (Reason: cough) Qty: 90 3RF atorvastatin 10 mg tablet 10 mg PO QPM acitretin 25 mg capsule 25 mg PO QAM desloratadine [Clarinex] 5 mg tablet 5 mg PO QAM finasteride [Proscar] 5 mg tablet 5 mg PO QAM tamsulosin [Flomax] 0.4 mg capsule 0.8 mg PO QPM valacyclovir [Valtrex] 500 mg tablet 500 mg PO QAM trazodone 150 mg tablet 300 mg PO HS clonazepam [Klonopin] 1 mg tablet 1 mg PO BID diphenoxylate-atropine [Lomotil] 2.5-0.025 mg tablet 1 tab PO TID PRN (Reason: diarrhea) pramipexole [Mirapex] 0.25 mg tablet See Rx Instructions .ROUTE .COMPLEX Rx Instructions: TAKE 1 TABLET EVERY EVENING, ADMINISTER 2 TO 3 HOURS BEFORE BEDTIME lisinopril-hydrochlorothiazide [Zestoretic] 20-25 mg tablet 1.5 tab PO QAM Rx Instructions: TAKE ONE AND ONE-HALF TABLETS DAILY fluticasone propionate [Flonase Allergy Relief] 50 mcg/actuation spray,suspension See Rx Instructions .ROUTE .COMPLEX Rx Instructions: USE 2 SPRAYS NASALLY DAILY meloxicam 15 mg tablet 15 mg PO QAM Rx Instructions: TAKE 1 TABLET DAILY omeprazole 40 mg capsule,delayed release(DR/EC) 40 mg PO BID Rx Instructions: TAKE 1 CAPSULE TWICE A DAY rizatriptan [Maxalt-[employer]] 10 mg tablet,disintegrating See Rx Instructions PO .COMPLEX PRN (Reason: Headache) Rx Instructions: take 1 tab at onset of headache; if no relief may repeat 1 tab in 2hr; max = 3 tabs/day (24hr) PO betamethasone dipropionate 0.05 % ointment 1 applic TOP BID Rx Instructions: Apply to areas of the trunk and extremities twice daily x 2 weeks as directed. sumatriptan succinate [Imitrex] 6 mg/0.5 mL solution 6 mg SQ .COMPLEX PRN (Reason: Headache) Rx Instructions: 6 mg subcut INECT DIRECTED NEED FOR MIGRAINE, LIMIT 3/WEEK and 9 per month; Discharge Orders: Discharge Order (Routine); Ordered 12/11/21 Ordered By: Allyson Rasheed Admission Data Admit Date/Time: 12/10/21 11:53 Attending Provider: Ang Zepeda Admit Provider: Ang Zepeda Primary Care Provider: Khloe Mejia Other Interventions: Discharge Summary Assessment (RN) Last Done: 12/11/21 14:15 Coding Level of Care Code 42445 OBS Care - Discharge Diagnoses Benign prostatic hyperplasia with urinary obstruction N40.1; N13.8 Hematuria, microscopic R31.29 Bilateral kidney stones N20.0 Incontinence R32
== END 2021-12-11 15:07 | disposition home or self-care (01) | DRG 713 ==
LOC: ASU 10:53 → OBSVTOIN 11:53 → INTOOBSV 11:53 → PACUINP 11:53 → 3E 15:55

== ENCOUNTER 2024-01-16 08:55 | Inpatient (IN) ==
[2024-01-16 09:52] LABS: Appearance Urine Clear (Clear); Bilirubin Urine Negative (Negative); Blood Urine Negative (Negative); Color Urine Yellow; Glucose Urine UA 3+ (Negative); Ketones Urine Negative (Negative); Leukocyte Esterase Urine Negative (Negative); Nitrite Urine Negative (Negative); Protein Urine Negative (Negative); Specific Gravity Urine 1.013 (1.000-1.030); Urobilinogen Urine Negative (Negative); pH Urine 5.5 (4.5-7.5)
--- NOTE | 2024-01-16 09:54 | Emergency Department Note ---
Impression & Plan Hyponatremia ED Provider Note ED Provider Note NAME: BERNARD SIMEON III AGE:73 SEX: Male : 1950 ARRIVES VIA: Private vehicle INFORMANT: Patient ED PROVIDER(s): Paula Hoffman DO CHIEF COMPLAINT: Referred by PCP HPI: This is a 73-year-old male presents emerged apartment after he was called by his PCP and told to come to the emergency department due to concern for a low sodium that was found on routine outpatient labs. Patient denies any recent dizziness, weakness, does admit to decreased appetite and intermittent blurred vision which she thought may be related to his history of migraines. He states he does not often have blurred vision with migraines but it has happened previously. He denies any chest pain, shortness of breath, abdominal pain, vomiting or diarrhea. Patient states he does follow with Dr. Mcgraw due to a history of chronic kidney disease. He states when he last saw Dr. Mcgraw he was told to increase his water intake. He states previously he was drinking 1.5 to 2 L/day of water, and after talking with Dr. Mcgraw he increase that to 3 L/day of water. No other change in urine or stools. He denies any lower extremity edema. PAST MEDICAL HISTORY:See Below PAST SURGICAL HISTORY:See Below FAMILY HISTORY:See Below SOCIAL HISTORY:See Below HOME MEDICATIONS:See Below ALLERGIES:See Below VITALS:See Below PHYSICAL EXAMINATION: GENERAL: alert, well appearing, well nourished, no distress, non-toxic EYE EXAM: normal conjunctiva, PERRL and EOM's grossly intact OROPHARYNX: no exudate, no erythema, lips, buccal mucosa, and tongue normal and mucous membranes are moist NECK: supple, no nuchal rigidity, no adenopathy, non-tender LUNGS: Clear to auscultation. Normal chest wall mechanics, no w/r/r HEART: no murmurs, S1 normal and S2 normal ABDOMEN: abdomen soft, non-tender, normo-active bowel sounds, no masses, no rebound or guarding. SKIN: no rashes, petechiae, orbruising UPPER EXTREMITIES: upper extremities are grossly normal. FROM, nml pulses b/l. LOWER EXTREMITIES: No pitting edema. FROM, nml pulses b/l. NEURO EXAM: Normal sensorium, cranial nerves II-XII grossly intact, normal speech, no facial droop,nogross weakness of arms, no gross weakness of legs. Gross sensation intact. No ataxia. Vital Signs: reviewed and remarkable Differential Diagnosis: BRIANNA, dehydration, electrolyte abnormality, dysrhythmia, ACS, occult infection, medication ADR, atypical migraine, as well as others were considered MEDICAL DECISION MAKING: This is a 73-year-old male who presents emergency department after he was referred here by his PCP after abnormal outpatient labs noted hyponatremia. Patient well-appearing here at bedside with no focal symptoms. He was afebrile and hemodynamically stable. Labs drawn and sent, IV established, a few additional labs were sent that were not part of the original outpatient labs, patient monitored on telemetry. Patient started on low maintenance infusion of normal saline awaiting the other labs. Given patient's reported intermittent blurred vision, he was sent for a CT of the head, this was reassuring also. Due to significant hyponatremia which I suspect is delusional from his increased free water intake, case discussed with the hospitalist team for additional evaluation and management. Consultation(s): 1058: Discussed with Dr. Bunn, [facility] hospitalist team, for additional evaluation and management. ER Treatment Provided: See below Diagnostics Interpreted By Me: -Cardiac Monitoring: An order was placed for continuous cardiac monitoring. The monitor shows a rate of 90 with normal sinus rhythm. -Laboratory studies: As stated above and show below. -Imaging studies: CT head: No [facility] Triage Nursing Note Reviewed Prior/Outside Records Reviewed Past Med/Surg History Problem List (Updated 01/16/24 @ 09:54 by Paula Hoffman DO) Hyponatremia (Acute) Encounter for preoperative assessment Nephrolithiasis Flank pain Acute kidney injury Abdominal pain CKD (chronic kidney disease) stage 3, GFR 30-59 ml/min Bilateral tinnitus Sensorineural hearing loss (SNHL) of both ears Chronic cough Anemia Hypervitaminosis D Bilateral kidney stones Myofascial pain Ischial bursitis Irritable bowel syndrome with diarrhea Allergic rhinitis (Acute) Dyslipidemia (Acute) Dysuria (Acute) Fatigue (Acute) Hematuria, microscopic (Acute) Impotence, organic (Acute) Insomnia (Acute) Pilonidal cyst (Acute) HX Coccydynia (Chronic) Chronic migraine (Chronic) Vitamin D toxicity - Follows with endocrine- "workup shows no evidence of hyperparathyroidism, cancer, multiple myeloma or inflammatory disease causing high vitamin D. " - Possibly due to UV therapy (currently on hold per 06/2023 endocrine visit note) Hypercalcemia Iron deficiency anemia Migraine 10x per month Follows with neuro Hyperlipidemia (Chronic) HTN (hypertension) (Chronic) Restless legs syndrome (Acute) Post-traumatic stress disorder (Acute) Lumbar degenerative disc disease (Acute) Chronic GERD (Acute) Benign prostatic hyperplasia with urinary obstruction (Acute) Anxiety (Acute) Type 2 diabetes mellitus with chronic kidney disease Medical History (Updated 01/16/24 @ 09:54 by Paula Hoffman DO) Incontinence Chronic kidney disease, stage 3 Kidney stones Seasonal allergic rhinitis Hx of skin cancer, basal cell History of stomach ulcers History of blood transfusion Coccydynia Uses a donut pillow when sitting Had RFA that did not work IBS (irritable bowel syndrome) Surgical History History of urologic surgery cysto, laser stone destruction (07/28/23): LMA igel 4 at [facility] Hx of bilateral cataract extraction Hx of basal cell carcinoma excision Status post cystoscopy multiple Hx of transurethral resection of prostate (~2021) History of eyelid surgery History of herniorrhaphy History of tonsillectomy History of esophagogastroduodenoscopy (EGD) History of colonoscopy H/O total knee replacement (~2013) left Hx of lithotripsy History of lumbar fusion x2 Cervical vertebral fusion (~2014) Family History Father Prostate cancer Diabetes Cardiac disorder Hypertension Mother Diabetes Breast cancer Hypertension Stroke Grandfather Myocardial infarction Other No family history of adverse response to anesthesia Denies family history of Ovarian cancer Crohn's disease Lung cancer Colorectal cancer Ulcerative colitis Social History Smoking Status: Never smoker Second Hand Exposure: No; Do You Dip or Chew Tobacco: No; Hx Alcohol Use: Yes Alcohol type: other Alcohol Intake Frequency: Monthly or Less Hx Substance Use: No Preferred Language: Kuwaiti Communication Ability: Effective Visual Impairment: No Limitations Hearing Ability: Use of Hearing Aid Geology Instructor Required: No Beliefs That Will Affect Care: None marital status: Current Living Situation: Spouse current occupational status: retired 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 How many Children do You have: 0 Feels Safe at Home: Yes Childhood Exposure to Second-Hand Smoke: Yes Diet: regular caffeine: Yes (2 coffees daily) Dental Care, Regularly: Yes Physical Activity Frequency: Daily Seatbelt Use: always Sunscreen Use: Yes Do you think of yourself as: straight/heterosexual Gender Identity: Male Assistive Devices: None Allergies Allergies Allergy/AdvReac Type Severity Reaction Status Date / Time No Known Allergies Allergy U Verified 01/02/24 08:18 Home Meds Home Medications Medication Instructions Recorded Confirmed vortioxetine 10 mg tablet 10 mg PO QAM 06/12/21 01/16/24 (Trintellix) diphenoxylate-atropine 2.5 1 tab PO TID PRN diarrhea 11/12/21 01/16/24 mg-0.025 mg tablet (Lomotil) betamethasone dipropionate 0.05 % 1 applic topical BID PRN psoriasis 11/27/21 01/16/24 topical ointment cyanocobalamin (vitamin B-12) 2,000 mcg PO QAM 12/05/22 01/16/24 2,000 mcg tablet,extended release (Vitamin B-12 ER) onabotulinumtoxinA 200 unit 1 unit subcut UD 05/27/23 01/16/24 solution for injection (Botox) amoxicillin 500 mg tablet 2,000 mg PO UD 07/17/23 01/16/24 fluticasone propionate 50 2 spray intranasal DAILY PRN 07/17/23 01/16/24 mcg/actuation nasal allergies spray,suspension pimecrolimus 1 % topical cream 1 applic topical BID PRN Rash 07/28/23 01/16/24 (Elidel) azelastine 137 mcg (0.1 %) nasal 1 spray intranasal DAILY 08/14/23 01/16/24 spray ferrous sulfate 325 mg (65 mg 325 mg PO BID 10/20/23 01/16/24 iron) tablet acitretin 25 mg capsule 25 mg PO Q OTHER DAY 01/16/24 01/16/24 eluxadoline 100 mg tablet (Viberzi) 100 mg PO BID PRN IBS 01/16/24 01/16/24 pramipexole 0.25 mg tablet 0.25 mg PO QPM 01/16/24 01/16/24 Previous Rx's Medication Instructions Recorded hydrocortisone 2.5 % topical cream 1 applic topical DAILY PRN skin 03/24/23 irritation #30 grams metformin 500 mg tablet 500 mg PO QPM #90 tabs 05/27/23 sumatriptan succinate 6 mg/0.5 mL 6 mg (0.5 mL) subcut UD PRN 05/27/23 subcutaneous solution (Imitrex) Headache #7.5 mL valacyclovir 500 mg tablet 500 mg PO QAM #90 tabs 05/27/23 (Valtrex) Accu-Chek Fastclix Lancet Drum #100 ea 05/28/23 (lancets) amlodipine 5 mg tablet 5 mg PO QAM #90 tabs 07/23/23 tamsulosin 0.4 mg capsule 0.4 mg PO HS #30 caps 08/14/23 ketoconazole 2 % shampoo 1 applic topical .COMPLEX #360 mL 08/15/23 desloratadine 5 mg tablet 5 mg PO QAM #90 tabs 08/26/23 (Clarinex) blood sugar diagnostic (Accu-Chek #100 strips 09/05/23 Guide test strips) empagliflozin 10 mg tablet 10 mg PO QAM #90 tabs 09/16/23 (Jardiance) trazodone 100 mg tablet 100 mg PO HS #90 tabs 09/16/23 atorvastatin 20 mg tablet 20 mg PO QPM #90 tabs 10/20/23 semaglutide 1 mg/dose (4 mg/3 mL) 1 mg (0.75 mL) subcut .weekly #9 mL 10/23/23 subcutaneous pen injector benzonatate 200 mg capsule 200 mg PO TID PRN cough #30 caps 11/04/23 finasteride 5 mg tablet 5 mg PO QAM #90 tabs 11/04/23 pantoprazole 40 mg tablet,delayed 40 mg PO BID #180 tabs 11/04/23 release (Protonix) amoxicillin 875 mg-potassium 1 tab PO BID #20 tabs 11/17/23 clavulanate 125 mg tablet galcanezumab-gnlm 120 mg/mL 120 mg subcut MONTHLY #1 mL 11/25/23 subcutaneous pen injector (Emgality Pen) rizatriptan 10 mg disintegrating 10 mg PO UD PRN Headache #27 tabs 11/25/23 tablet (Maxalt-NAIL TECHNICIAN) atovaquone 250 mg-proguanil 100 mg See Rx Instructions PO .COMPLEX 11/30/23 tablet #20 tabs ubrogepant 100 mg tablet (Ubrelvy) 100 mg PO DAILY PRN migraine 12/12/23 headache #10 tabs atomoxetine 40 mg capsule 80 mg (2 x 40 mg) PO DAILY #30 caps 12/22/23 baclofen 10 mg tablet 10 mg PO Q8H PRN Pain #270 tabs 01/05/24 lisinopril 20 mg tablet 20 mg PO QAM #90 tabs 01/06/24 Results & Data (ED) Vital Signs Vital Signs - 24 hr 01/16/24 09:02 01/16/24 09:20 01/16/24 09:25 Temperature 36.5 C Temperature Source Skin Pulse Rate 104 H 102 H Pulse Rate [Apical] 100 H Pulse Rhythm [Apical] Regular Pulse Strength [Apical] Normal Respiratory Rate 20 14 Respiratory Effort / Characteristics Non-Labored Spontaneous Non-Labored Spontaneous Respiratory Depth Normal Normal Respiratory Pattern Regular Regular Blood Pressure 122/81 Blood Pressure [Left Arm] 104/81 Blood Pressure Mean 94 Blood Pressure Mean [Left Arm] 88 Blood Pressure Position [Left Arm] Sitting Pulse Oximetry 100 99 Oxygen Delivery Method Room Air Room Air Sepsis Recent Fever Within 48 Hours No Sepsis New/Unexplained Change in Mental Status N/A Sepsis Action Taken by Nursing No Action Required Laboratory Data Lab Results 01/16/24 Range/Units 09:20 Phosphorus 3.6 (2.5-4.9) mg/dl Magnesium 1.8 (1.7-2.4) mg/dl Administered Medications Discontinued Medications Sodium Chloride (Nss) 500 mls @ 80 mls/hr IV .Q6H15M [facility] Stop: 02/15/24 10:29 Last Infusion: 01/16/24 12:11 Dose: Infused Documented By: Admin: 01/16/24 10:33 Dose: 80 mls/hr Documented By: RICHARD Imaging Data Radiologist's Impression: Head CT 01/16/24 09:35 CT head/brain wo con CLINICAL HISTORY: 73 years-old Male with blurred vision, Na 123. Acute blurry vision TECHNIQUE: Multiple axial CT images of the head were obtained without contrast. A dose lowering technique was utilized adhering to the principles of ALARA. CT DOSE: 625.8 mGy.cm COMPARISON: None. FINDINGS: No acute intracranial hemorrhage, midline shift, intracranial mass, hydrocephalus, territorial ischemia or abnormal extra-axial collection. Involutional changes with mild white matter hypodensities likely representing chronic microvascular ischemic disease. The calvarium is intact. The paranasal sinuses, mastoid air cells, and middle ear cavities are clear. IMPRESSION: No acute intracranial abnormality. ACT 112: Negative or not required by law. The above report was generated using voice recognition software. It may contain grammatical, syntax or spelling errors. Electronically signed by: Sha Lopez M.D. 01/16/2024 10:27 AM Discharge Plan Visit Data Chief Complaint: Abnormal Labs/Diagnostic Testing Stated Complaint: ABNORMAL LABS, LOW SODIUM ED Provider: Paula Hoffman Discharge Problem: Hyponatremia Patient Disposition: Admitted As Inpatient Discharge Instructions Interventions: ED Discharge Assessment Last Done: 01/16/24 12:43
[2024-01-16 10:05] LABS: Magnesium 1.8 mg/dl (1.7-2.4); Phosphorus 3.6 mg/dl (2.5-4.9)
--- NOTE | 2024-01-16 10:29 | CT Scan Report ---
CT head/brain wo con CLINICAL HISTORY: 73 years-old Male with blurred vision, Na 123. Acute blurry vision TECHNIQUE: Multiple axial CT images of the head were obtained without contrast. A dose lowering tech nique was utilized adhering to the principles of ALARA. CT DOSE: 625.8 mGy.cm COMPARISON: None. FINDINGS: No acute intracranial hemorrhage, midline shift, intracranial mass, hydrocephalus, territorial ischem ia or abnormal extra-axial collection. Involutional changes with mild white matter hypodensities like ly representing chronic microvascular ischemic disease. The calvarium is intact. The paranasal sinuses, mastoid air cells, and middle ear cavities are clear . IMPRESSION: No acute intracranial abnormality. ACT 112: Negative or not required by law. The above report was generated using voice recognition software. It may contain grammatical, syntax o r spelling errors. Electronically signed by: Sha Lopez M.D. 01/16/2024 10:27 AM
[2024-01-16] MEDS: SODIUM CHLORIDE 0.9% 500 ML IV SCH (10:33)
--- NOTE | 2024-01-16 12:17 | History & Physical Report ---
Date of Service January 16, 2024 Assessment & Plan (1) Hyponatremia: Plan: Acute - Admit to med/tele - Diabetic diet - Fluid restriction at 1200 ml/day - Obtain urine and serum osmolality, random urine Na level - Cap IVF - Repeat BMP @ 1800 and again in AM (2) CKD (chronic kidney disease) stage 3, GFR 30-59 ml/min: Plan: Chronic - Creatinine at baseline - Avoid nephrotoxic meds and renally adjust meds where appropriate - F/u BMP in AM (3) Type 2 diabetes mellitus with chronic kidney disease: Plan: Chronic - Diabetic diet ordered - Most recent A1c obtained today 7% - Med reconciliation not completed, but when done, may resume home diabetic regimen. Appears to be on combination of GLP1 + metformin - Noninsulin dependent, no SSI or basal insulin needed - Fasting accuchecks ordered once daily in AM, if >180 add log with meals (4) HTN (hypertension): Plan: Chronic - Continue lisinopril and amlodipine - BP well controlled Plan Other stable medical issues: 1. IBS-D - continue eluxadoline and prn Lomotil 2. MINA - continue ferrous sulfate 3. BPH - continue finasteride and tamsulosin 4. Migraine headaches - continue emgality & prn rizatriptan 5. GERD - continue pantoprazole 6. RLS - continue pramipexole Lovenox will be added for VTE prophylaxis. AM labs ordered. Plan of care has d/w Dr. Bunn, further orders as warranted by attending. History of Present Illness Chief Complaint: Abnormal labs Primary Care Provider: Khloe Mejia MD Yoandy is a 73 yo M with a pmhx of DMT2, CKD, IBS-D, HTN, BPH, MINA, and nephrolithiasis who presents to the ER today d/t abnormal labs. He reports that he was seen by his investor last month and encouraged to increase his water intake to 3L per day due to recurrence of his kidney stones. He notes that prior to this, he was consuming about 1.5-2L of water per day. He had follow up blood work today that demonstrated a sodium of 123. He was contacted by his PCP and instructed to come to the ER. Upon arrival, he was awake and alert, in no distress. His vital signs are stable. ER physician began IVF with NSS at 80 ml/hr. Patient denies chest pain, increased dyspnea, orthopnea, LE edema, or n/v/d. He does not take any diuretics per his last PCP note. Medication reconciliation not yet completed. He has been referred to the hospital medicine team for admission. Allergies Allergy/AdvReac Type Severity Reaction Status Date / Time No Known Allergies Allergy U Verified 01/02/24 08:18 Home Medications Medication Instructions Recorded Confirmed Type vortioxetine 10 mg tablet 10 mg PO QAM 06/12/21 01/16/24 History (Trintellix) diphenoxylate-atropine 2.5 1 tab PO TID PRN diarrhea 11/12/21 01/16/24 History mg-0.025 mg tablet (Lomotil) betamethasone dipropionate 0.05 % 1 applic topical BID PRN psoriasis 11/27/21 01/16/24 History topical ointment cyanocobalamin (vitamin B-12) 2,000 mcg PO QAM 12/05/22 01/16/24 History 2,000 mcg tablet,extended release (Vitamin B-12 ER) hydrocortisone 2.5 % topical cream 1 applic topical DAILY PRN skin 03/24/23 01/16/24 Rx irritation #30 grams metformin 500 mg tablet 500 mg PO QPM #90 tabs 05/27/23 01/16/24 Rx onabotulinumtoxinA 200 unit 1 unit subcut UD 05/27/23 01/16/24 History solution for injection (Botox) sumatriptan succinate 6 mg/0.5 mL 6 mg (0.5 mL) subcut UD PRN 05/27/23 01/16/24 Rx subcutaneous solution (Imitrex) Headache #7.5 mL valacyclovir 500 mg tablet 500 mg PO QAM #90 tabs 05/27/23 01/16/24 Rx (Valtrex) Accu-Chek Fastclix Lancet Drum #100 ea 05/28/23 01/16/24 Rx (lancets) amoxicillin 500 mg tablet 2,000 mg PO UD 07/17/23 01/16/24 History fluticasone propionate 50 2 spray intranasal DAILY PRN 07/17/23 01/16/24 History mcg/actuation nasal allergies spray,suspension amlodipine 5 mg tablet 5 mg PO QAM #90 tabs 07/23/23 01/16/24 Rx pimecrolimus 1 % topical cream 1 applic topical BID PRN Rash 07/28/23 01/16/24 History (Elidel) azelastine 137 mcg (0.1 %) nasal 1 spray intranasal DAILY 08/14/23 01/16/24 History spray tamsulosin 0.4 mg capsule 0.4 mg PO HS #30 caps 08/14/23 01/16/24 Rx ketoconazole 2 % shampoo 1 applic topical .COMPLEX #360 mL 08/15/23 01/16/24 Rx desloratadine 5 mg tablet 5 mg PO QAM #90 tabs 08/26/23 01/16/24 Rx (Clarinex) blood sugar diagnostic (Accu-Chek #100 strips 09/05/23 01/16/24 Rx Guide test strips) empagliflozin 10 mg tablet 10 mg PO QAM #90 tabs 09/16/23 01/16/24 Rx (Jardiance) trazodone 100 mg tablet 100 mg PO HS #90 tabs 09/16/23 01/16/24 Rx atorvastatin 20 mg tablet 20 mg PO QPM #90 tabs 10/20/23 01/16/24 Rx ferrous sulfate 325 mg (65 mg 325 mg PO BID 10/20/23 01/16/24 History iron) tablet semaglutide 1 mg/dose (4 mg/3 mL) 1 mg (0.75 mL) subcut .weekly #9 mL 10/23/23 01/16/24 Rx subcutaneous pen injector benzonatate 200 mg capsule 200 mg PO TID PRN cough #30 caps 11/04/23 01/16/24 Rx finasteride 5 mg tablet 5 mg PO QAM #90 tabs 11/04/23 01/16/24 Rx pantoprazole 40 mg tablet,delayed 40 mg PO BID #180 tabs 11/04/23 01/16/24 Rx release (Protonix) amoxicillin 875 mg-potassium 1 tab PO BID #20 tabs 11/17/23 01/16/24 Rx clavulanate 125 mg tablet galcanezumab-gnlm 120 mg/mL 120 mg subcut MONTHLY #1 mL 11/25/23 01/16/24 Rx subcutaneous pen injector (Emgality Pen) rizatriptan 10 mg disintegrating 10 mg PO UD PRN Headache #27 tabs 11/25/23 01/16/24 Rx tablet (Maxalt-SPAR MACHINE OPERATOR) atovaquone 250 mg-proguanil 100 mg See Rx Instructions PO .COMPLEX 11/30/23 01/16/24 Rx tablet #20 tabs ubrogepant 100 mg tablet (Ubrelvy) 100 mg PO DAILY PRN migraine 12/12/23 01/16/24 Rx headache #10 tabs atomoxetine 40 mg capsule 80 mg (2 x 40 mg) PO DAILY #30 caps 12/22/23 01/16/24 Rx baclofen 10 mg tablet 10 mg PO Q8H PRN Pain #270 tabs 01/05/24 01/16/24 Rx lisinopril 20 mg tablet 20 mg PO QAM #90 tabs 01/06/24 01/16/24 Rx acitretin 25 mg capsule 25 mg PO Q OTHER DAY 01/16/24 01/16/24 History eluxadoline 100 mg tablet (Viberzi) 100 mg PO BID PRN IBS 01/16/24 01/16/24 History pramipexole 0.25 mg tablet 0.25 mg PO QPM 01/16/24 01/16/24 History Past Med/Surg History Problem List Hyponatremia (Acute) Encounter for preoperative assessment Nephrolithiasis Flank pain Acute kidney injury Abdominal pain CKD (chronic kidney disease) stage 3, GFR 30-59 ml/min Bilateral tinnitus Sensorineural hearing loss (SNHL) of both ears Chronic cough Anemia Hypervitaminosis D Bilateral kidney stones Myofascial pain Ischial bursitis Irritable bowel syndrome with diarrhea Allergic rhinitis (Acute) Dyslipidemia (Acute) Dysuria (Acute) Fatigue (Acute) Hematuria, microscopic (Acute) Impotence, organic (Acute) Insomnia (Acute) Pilonidal cyst (Acute) HX Coccydynia (Chronic) Chronic migraine (Chronic) Vitamin D toxicity - Follows with endocrine- "workup shows no evidence of hyperparathyroidism, cancer, multiple myeloma or inflammatory disease causing high vitamin D. " - Possibly due to UV therapy (currently on hold per 06/2023 endocrine visit note) Hypercalcemia Iron deficiency anemia Migraine 10x per month Follows with neuro Hyperlipidemia (Chronic) HTN (hypertension) (Chronic) Restless legs syndrome (Acute) Post-traumatic stress disorder (Acute) Lumbar degenerative disc disease (Acute) Chronic GERD (Acute) Benign prostatic hyperplasia with urinary obstruction (Acute) Anxiety (Acute) Type 2 diabetes mellitus with chronic kidney disease Medical History Incontinence Chronic kidney disease, stage 3 Kidney stones Seasonal allergic rhinitis Hx of skin cancer, basal cell History of stomach ulcers History of blood transfusion Coccydynia Uses a donut pillow when sitting Had RFA that did not work IBS (irritable bowel syndrome) Surgical History History of urologic surgery cysto, laser stone destruction (07/28/23): LMA igel 4 at [facility] Hx of bilateral cataract extraction Hx of basal cell carcinoma excision Status post cystoscopy multiple Hx of transurethral resection of prostate (~2021) History of eyelid surgery History of herniorrhaphy History of tonsillectomy History of esophagogastroduodenoscopy (EGD) History of colonoscopy H/O total knee replacement (~2013) left Hx of lithotripsy History of lumbar fusion x2 Cervical vertebral fusion (~2014) Family History Father Prostate cancer Diabetes Cardiac disorder Hypertension Mother Diabetes Breast cancer Hypertension Stroke Grandfather Myocardial infarction Other No family history of adverse response to anesthesia Denies family history of Ovarian cancer Crohn's disease Lung cancer Colorectal cancer Ulcerative colitis Social History Smoking Status: Never smoker Second Hand Exposure: No; Do You Dip or Chew Tobacco: No; Hx Alcohol Use: Yes Alcohol type: other Alcohol Intake Frequency: Monthly or Less Hx Substance Use: No Preferred Language: Albanian Communication Ability: Effective Visual Impairment: No Limitations Hearing Ability: Use of Hearing Aid Judo Teacher Required: No Beliefs That Will Affect Care: None marital status: Current Living Situation: Spouse current occupational status: retired 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 Denies fever, chills, fatigue, headache, nasal congestion, sore throat, cough, chest pain, shortness of breath, palpitations, orthopnea, PND, abdominal pain, n/v/d, constipation, dysuria, hematuria, frequency, back pain, joint pain or swelling, easy bruising or bleeding, skin lesions or rashes. Physical Exam Physical Exam: GENERAL: 73 yo well-nourished elderly M. NAD. EYES: EOMI. PERRLA. Anicteric. HENT: Moist mucous membranes. No scleral icterus. No cervical lymphadenopathy. LUNGS: Clear to auscultation bilaterally. No accessory muscle use. No W/R/R. CARDIOVASCULAR: Regular rate and rhythm. +systolic murmur ABDOMEN: Soft, non-tender and non-distended. BS normoactive x 4 quad. EXTREMITIES: No edema. Non-tender. Peripheral pulses +2/4. NEUROLOGIC: A&O x3. No focal neurological deficits. CN II-XII grossly intact. PSYCHIATRIC: Cooperative. Appropriate mood and affect. SKIN: Warm, dry, intact. No rashes or lesions. Results & Data Results & Data Vital Signs (Past 12 Hours) Vital Signs Temp Pulse Pulse Resp BP BP Pulse Ox 01/16/24 09:25 102 H 01/16/24 09:20 100 H 14 104/81 99 01/16/24 09:02 36.5 C 104 H 20 122/81 100 O2 Del Method 01/16/24 09:25 01/16/24 09:20 Room Air 01/16/24 09:02 Room Air Laboratory Results Sodium 123 Potassium 4.5 Chloride 89 CO2 26 AG 8 BUN 38 Creatinine 1.78 eGFR 39.78 BUN/Cr Ratio 21.3 Glucose [address] 01/16/24 09:35 CT head/brain wo con CLINICAL HISTORY: 73 years-old Male with blurred vision, Na 123. Acute blurry vision TECHNIQUE: Multiple axial CT images of the head were obtained without contrast. A dose lowering technique was utilized adhering to the principles of ALARA. CT DOSE: 625.8 mGy.cm COMPARISON: None. FINDINGS: No acute intracranial hemorrhage, midline shift, intracranial mass, hydrocephalus, territorial ischemia or abnormal extra-axial collection. Involutional changes with mild white matter hypodensities likely representing chronic microvascular ischemic disease. The calvarium is intact. The paranasal sinuses, mastoid air cells, and middle ear cavities are clear. IMPRESSION: No acute intracranial abnormality. ACT 112: Negative or not required by law. The above report was generated using voice recognition software. It may contain grammatical, syntax or spelling errors. Electronically signed by: Sha Lopez M.D. 01/16/2024 10:27 AM Code Status & VTE Plan Code Status Condition code- CPR but no intubation/mechanical ventilation VTE Prophylaxis Plan VTE Prophylaxis will be ordered: Yes Supervising Physician Co-Signing Physician Notes I personally saw and examined the patient. I independently reviewed the labs, EKG, imaging, problem list, medication list, past medical history and family history. I verified all keller points and agree with Guera Lawson PA-C with the following exceptions and/or additions: 73 year old male who presents to the ER with outpatient labs showing Na 123. Possible mild weakness but no nausea, headache and not clear his symptoms due to low Na. Significant increase in free water. O/E HS RRR, no murmurs, Chest CTAB, Abdo SNT A/P Hyponatremia - history of primary polydipsia although urine osm/Na borderline for SIADH. Na not improved throughout the day. Will add NaCl 1g PO BID and repeat with AM labs PG Care Time/CCT Total # of Minutes Spent Total Time Spent with Patient: Total time spent is greater than 50% in coordination of care (as documented) at patient's floor/unit and/or counseling patient: 77 minutes Coding Level of Care Code 91311 INT INP/OBS CARE 3/75MIN Diagnoses Hyponatremia E87.1 Stage 3a chronic kidney disease N18.31 Chronic kidney disease stage 3 subtype: stage 3a (GFR 45-59) Type 2 diabetes mellitus with stage 3b chronic kidney disease, without long-term current use of insulin E11.22; N18.32 Chronic kidney disease stage: stage 3 (moderate) Chronic kidney disease stage 3 subtype: stage 3b (GFR 30-44) Diabetes mellitus intermediate manager insulin use: without intermediate manager use HTN (hypertension) I10 (2) CKD (chronic kidney disease) stage 3, GFR 30-59 ml/min Chronic kidney disease stage 3 subtype: stage 3a (GFR 45-59) Qualified Code(s): N18.31 - Chronic kidney disease, stage 3a (3) Type 2 diabetes mellitus with chronic kidney disease Chronic kidney disease stage: stage 3 (moderate) Chronic kidney disease stage 3 subtype: stage 3b (GFR 30-44) Diabetes mellitus half-way insulin use: without half-way use Qualified Code(s): E11.22 - Type 2 diabetes mellitus with diabetic chronic kidney disease; N18.32 - Chronic kidney disease, stage 3b
[2024-01-16] MEDS ORDERED: ONDANSETRON INJ 2 MG/ML 2 ML VIAL IV PRN (13:02)
[2024-01-16] MEDS ORDERED: MAGNESIUM HYDROXIDE SUSP 30 ML UDC PO PRN (13:02)
[2024-01-16] MEDS ORDERED: ACETAMINOPHEN 325 MG TAB PO PRN (13:02)
[2024-01-16] MEDS ORDERED: ALUMINUM/MAGNESIUM SUSP 30 ML UDC PO PRN (13:02)
[2024-01-16] MEDS ORDERED: BENZONATATE 100 MG CAPSULE PO PRN (18:16)
[2024-01-16] MEDS ORDERED: DIPHENOXYLATE/ATROPINE 2.5/0.025MG TAB PO PRN (18:16)
[2024-01-16] MEDS ORDERED: BACLOFEN 10 MG TAB PO PRN (18:16)
[2024-01-16] MEDS ORDERED: RIZATRIPTAN BENZOATE MLT 10 MG TAB PO PRN (18:34)
[2024-01-16] MEDS ORDERED: RIZATRIPTAN BENZOATE 10 MG TAB PO PRN (18:42)
[2024-01-16 18:43] LABS: BUN Creatinine Ratio 20.4 (10-20); Calcium 10.5 mg/dl (8.6-10.3); Creatinine Clr Calc Pharmacy 33.7 ml/min; Potassium 4.7 mmol/L (3.5-5.1)
[2024-01-16] MEDS: FERROUS SULFATE 325 MG TAB PO SCH (19:32)
[2024-01-16] MEDS: ATORVASTATIN 20 MG TAB PO SCH (20:36)
[2024-01-16] MEDS: PANTOprazole 40 MG TAB PO SCH (20:37)
[2024-01-16] MEDS: PRAMIPEXOLE DIHYDROCHLO 0.25 MG TAB PO SCH (20:37)
[2024-01-16] MEDS: traZODone HCL 100 MG TAB PO SCH (20:38)
[2024-01-16] MEDS: TAMSULOSIN HCL 0.4 MG CAP PO SCH (20:38)
[2024-01-16] MEDS: SODIUM CHLORIDE 1 GM TABLET PO SCH (21:24)
[2024-01-17 06:01] LABS: Basophils # (auto) 0.07 K/uL (0.00-0.20); Basophils % (auto) 0.8 %; Eosinophils # (auto) 0.21 K/uL (0.00-0.50); Eosinophils % (auto) 2.3 %; Hemoglobin 15.8 g/dl (14.0-18.0); Immature Granulocytes # (auto) 0.05 K/uL (0.01-0.20); Immature Granulocytes % (auto) 0.5 %; Lymphocytes # (auto) 1.56 K/uL (1.20-3.40); Lymphocytes % (auto) 16.8 %; Mean Corpuscular Hemoglobin 33.5 pg (25.0-34.0); Mean Corpuscular Hgb Conc 35.1 g/dL (32.0-36.0); Mean Corpuscular Volume 95.5 fL (80.0-100.0); Mean Platelet Volume 9.3 fL (9.4-12.4); Monocytes # (auto) 1.67 K/uL (0.11-0.59); Neutrophils % (auto) 61.6 %; Platelet Count 313 K/uL (130-400); RDW Coefficient of Variation 12.5 % (11.5-14.5); RDW Standard Deviation 44.4 fL (36.4-46.3); Red Blood Count 4.71 M/uL (4.70-6.10); White Blood Count 9.26 K/ul (4.8-10.8)
[2024-01-17 06:17] LABS: BUN Creatinine Ratio 19.6 (10-20); Calcium 10.6 mg/dl (8.6-10.3); Creatinine Clr Calc Pharmacy 29.3 ml/min; Potassium 4.6 mmol/L (3.5-5.1)
[2024-01-17] MEDS: LORATADINE 10 MG TAB PO SCH (08:57)
[2024-01-17] MEDS: amLODIPine BESYLATE 5 MG TAB PO SCH (08:57)
[2024-01-17] MEDS: EMPAGLIFLOZIN 10 MG TAB PO SCH (08:57)
[2024-01-17] MEDS: valACYclovir HCL 500 MG TABLET PO SCH (08:57)
[2024-01-17] MEDS: CYANOCOBALAMIN (B-12) 500 MCG TABLET PO SCH (08:58)
[2024-01-17] MEDS: ATOMOXETINE HCL 40 MG CAPSULE PO SCH (08:58)
[2024-01-17] MEDS: FINASTERIDE 5 MG TAB PO SCH (08:58)
[2024-01-17] MEDS: lisinopril 20 MG TAB PO SCH (08:58)
[2024-01-17] MEDS: AZELASTINE HCL 0.1% NASAL 200 SPRAYS/27,400 MCG BTL SCH (09:00)
[2024-01-17] MEDS: ENOXAPARIN INJ 40 MG/0.4 ML SYR SQ SCH (09:01)
[2024-01-17] MEDS: VORTIOXETINE HYDROBROMIDE PO SCH (09:02)
--- NOTE | 2024-01-17 09:40 | Nephrology Progress Note ---
Date of Service January 17, 2024 Assessment & Plan Admission and Anticipated Discharge Date Admission Date: January 16, 2024 Results & Data Vital Signs (Past 12 Hours) Vital Signs Temp Pulse Pulse Resp BP BP Pulse Ox 01/17/24 08:20 94 H 01/17/24 08:03 36.5 C 100 H 15 103/72 96 01/17/24 02:46 36.7 C 82 16 111/74 96 01/16/24 22:46 36.6 C 86 18 107/71 95 01/16/24 22:04 88 O2 Del Method 01/17/24 08:20 01/17/24 08:03 Room Air 01/17/24 02:46 Room Air 01/16/24 22:46 Room Air 01/16/24 22:04 Laboratory Results Laboratory Results WBC 9.26 K/ul (4.8-10.8) 01/17/24 05:24 RBC 4.71 M/uL (4.70-6.10) 01/17/24 05:24 Hgb 15.8 g/dl (14.0-18.0) 01/17/24 05:24 Hct 45.0 % (42.0-52.0) 01/17/24 05:24 MCV 95.5 fL (80.0-100.0) 01/17/24 05:24 MCH 33.5 pg (25.0-34.0) 01/17/24 05:24 MCHC 35.1 g/dL (32.0-36.0) 01/17/24 05:24 RDW Std Deviation 44.4 fL (36.4-46.3) 01/17/24 05:24 RDW Coeff of Estefanía 12.5 % (11.5-14.5) 01/17/24 05:24 Plt Count 313 K/uL (130-400) 01/17/24 05:24 MPV 9.3 fL (9.4-12.4) L 01/17/24 05:24 Immature Gran % (Auto) 0.5 % 01/17/24 05:24 Neut % (Auto) 61.6 % 01/17/24 05:24 Lymph % (Auto) 16.8 % 01/17/24 05:24 Griggs % (Auto) 18.0 % 01/17/24 05:24 Eos % (Auto) 2.3 % 01/17/24 05:24 Baso % (Auto) 0.8 % 01/17/24 05:24 Neut # (Auto) 5.70 K/uL (1.40-6.50) 01/17/24 05:24 Lymph # (Auto) 1.56 K/uL (1.20-3.40) 01/17/24 05:24 Griggs # (Auto) 1.67 K/uL (0.11-0.59) H 01/17/24 05:24 Eos # (Auto) 0.21 K/uL (0.00-0.50) 01/17/24 05:24 Baso # (Auto) 0.07 K/uL (0.00-0.20) 01/17/24 05:24 Immature Gran # (Auto) 0.05 K/uL (0.01-0.20) 01/17/24 05:24 Sodium 129 mmol/L (136-145) L 01/17/24 05:24 Potassium 4.6 mmol/L (3.5-5.1) 01/17/24 05:24 Chloride 94 mmol/L (98-107) L 01/17/24 05:24 Carbon Dioxide 26 mmol/L (21-32) 01/17/24 05:24 Anion Gap 9 (3-11) 01/17/24 05:24 BUN 42 mg/dl (6-23) H 01/17/24 05:24 Creatinine 2.14 mg/dl (0.6-1.4) H 01/17/24 05:24 Est Cr Clr Drug Dosing 29.3 ml/min 01/17/24 05:24 eGFR 31.89 01/17/24 05:24 BUN/Creatinine Ratio 19.6 (10-20) 01/17/24 05:24 Glucose 139 mg/dl (70-99(Fasting)) H 01/17/24 05:24 POC Glucose 132 mg/dl (70-99) H 01/17/24 08:14 Osmolality 273 mOsm/kg (280-300) L 01/16/24 17:51 Calcium 10.6 mg/dl (8.6-10.3) H 01/17/24 05:24 Phosphorus 3.6 mg/dl (2.5-4.9) 01/16/24 09:20 Magnesium 2.0 mg/dl (1.7-2.4) 01/17/24 05:24 Urine Color Yellow 01/16/24 Unknown Urine Appearance Clear (Clear) 01/16/24 Unknown Urine pH 5.5 (4.5-7.5) 01/16/24 Unknown Ur Specific Alligator 1.013 (1.000-1.030) 01/16/24 Unknown Urine Protein Negative (Negative) 01/16/24 Unknown Urine Glucose (UA) 3+ (Negative) H 01/16/24 Unknown Urine Ketones Negative (Negative) 01/16/24 Unknown Urine Blood Negative (Negative) 01/16/24 Unknown Urine Nitrite Negative (Negative) 01/16/24 Unknown Urine Bilirubin Negative (Negative) 01/16/24 Unknown Urine Urobilinogen Negative (Negative) 01/16/24 Unknown Ur Leukocyte Esterase Negative (Negative) 01/16/24 Unknown Urine Osmolality 301 mOsm/kg (500-800) L 01/16/24 Unknown Ur Random Sodium 24 mmol/L 01/16/[address] 01/16/24 09:35 CT head/brain wo con CLINICAL HISTORY: 73 years-old Male with blurred vision, Na 123. Acute blurry vision TECHNIQUE: Multiple axial CT images of the head were obtained without contrast. A dose lowering technique was utilized adhering to the principles of ALARA. CT DOSE: 625.8 mGy.cm COMPARISON: None. FINDINGS: No acute intracranial hemorrhage, midline shift, intracranial mass, hydrocephalus, territorial ischemia or abnormal extra-axial collection. Involutional changes with mild white matter hypodensities likely representing chronic microvascular ischemic disease. The calvarium is intact. The paranasal sinuses, mastoid air cells, and middle ear cavities are clear. IMPRESSION: No acute intracranial abnormality. ACT 112: Negative or not required by law. The above report was generated using voice recognition software. It may contain grammatical, syntax or spelling errors. Electronically signed by: Sha Lopez M.D. 01/16/2024 10:27 AM PG Care Time/CCT Total # of Minutes Spent Total Time Spent with Patient: Total time spent is greater than 50% in coordination of care (as documented) at patient's floor/unit and/or counseling patient: Coding
--- NOTE | 2024-01-17 10:23 | Nephrology Consultation ---
Date of Consultation January 17, 2024 Assessment & Plan (1) Hyponatremia: * Hypoosmolar hyponatremia detected on routine outpatient laboratory testing * Mildly symptomatic (weakness) - resolved * Elevated Uosm and Saumya more consistent w/ SIADH than free water intoxication * Currently on 1200 cc/day free water restriction and NaCl 1 g po BID * Serum Na has risen 6 mmol/L over last 24 hours. It is now within a relatively safe range * Recommend continue current management * Will order PRP at 1pm, 6pm and tomorrow am * Once serum Na > 132, stop NaCl supplement * Consider discharge home once Na > 132 with follow up in my office in 7-10 days History of Present Illness Reason for Consultation: Hyponatremia, CKD Attending Physician: Kendall Montoya History of Present Illness Mr. Garcia is a 72 year old white male who is seen at the request of the [facility] Hospitalist Service for evaluation of hyponatremia, CKD. Information for the HPI is obtained from direct patient interview and review of the EMR. HPI is summarized as follows: Mr. Garcia has CKD stage G3a/A1 (moderate impairment). Baseline Cr has risen to 1.8-2.1 w/ EGFR 32 cc/min. Outpatient evaluation revealed a benign urine sediment. UACR 0.1. 06/07 renal US - R 9.7cm, L 11.2cm, bilateral cysts and small kidney stones. No hydronephrosis. Renal impairment is on the basis of microvascular disease. Mr. Garcia's medical history is also significant for AODM, HTN, psoriasis, hypervitaminosis D, kidney stones, B12 deficiency, BPH and PTSD. In 12/04 Mr. Garcia suffered an episode of BRIANNA/CKD related to dehydration. He was on a thiazide diuretic and an SGLT2i was added to his regimen. Creatinine has returned to baseline off the thiazide diuretic and patient remains on SGLT2i therapy without side effect. Mr. Garcia has a h/o kidney stones. He was advised to maintain 2-3 L free water intake/day to reduce his stone forming risk. This was emphasized because he plans a trip to [facility] in February and will have increased insensible water losses. Mr. Garcia reports that he has been very diligent about measuring out his free water intake. He has been drinking at least 3 L/day. Yesterday laboratory studies performed for his PCP revealed serum Na 123 mmol/L. Mr. Garcia reported mild weakness. He was referred to the [facility] where he received 500 cc 0.9 NS. Hospitalist service has capped the IV and placed patient on 1200 cc oral fluid restriction and provided NaCl 1 g po BID. Allergies Allergy/AdvReac Type Severity Reaction Status Date / Time No Known Allergies Allergy U Verified 01/02/24 08:18 Home Medications Medication Instructions Recorded Confirmed Type vortioxetine 10 mg tablet 10 mg PO QAM 06/12/21 01/16/24 History (Trintellix) diphenoxylate-atropine 2.5 1 tab PO TID PRN diarrhea 11/12/21 01/16/24 History mg-0.025 mg tablet (Lomotil) betamethasone dipropionate 0.05 % 1 applic topical BID PRN psoriasis 11/27/21 01/16/24 History topical ointment cyanocobalamin (vitamin B-12) 2,000 mcg PO QAM 12/05/22 01/16/24 History 2,000 mcg tablet,extended release (Vitamin B-12 ER) hydrocortisone 2.5 % topical cream 1 applic topical DAILY PRN skin 03/24/23 01/16/24 Rx irritation #30 grams metformin 500 mg tablet 500 mg PO QPM #90 tabs 05/27/23 01/16/24 Rx onabotulinumtoxinA 200 unit 1 unit subcut UD 05/27/23 01/16/24 History solution for injection (Botox) sumatriptan succinate 6 mg/0.5 mL 6 mg (0.5 mL) subcut UD PRN 05/27/23 01/16/24 Rx subcutaneous solution (Imitrex) Headache #7.5 mL valacyclovir 500 mg tablet 500 mg PO QAM #90 tabs 05/27/23 01/16/24 Rx (Valtrex) Accu-Chek Fastclix Lancet Drum #100 ea 05/28/23 01/16/24 Rx (lancets) amoxicillin 500 mg tablet 2,000 mg PO UD 07/17/23 01/16/24 History fluticasone propionate 50 2 spray intranasal DAILY PRN 07/17/23 01/16/24 History mcg/actuation nasal allergies spray,suspension amlodipine 5 mg tablet 5 mg PO QAM #90 tabs 07/23/23 01/16/24 Rx pimecrolimus 1 % topical cream 1 applic topical BID PRN Rash 07/28/23 01/16/24 History (Elidel) azelastine 137 mcg (0.1 %) nasal 1 spray intranasal DAILY 08/14/23 01/16/24 History spray tamsulosin 0.4 mg capsule 0.4 mg PO HS #30 caps 08/14/23 01/16/24 Rx ketoconazole 2 % shampoo 1 applic topical .COMPLEX #360 mL 08/15/23 01/16/24 Rx desloratadine 5 mg tablet 5 mg PO QAM #90 tabs 08/26/23 01/16/24 Rx (Clarinex) blood sugar diagnostic (Accu-Chek #100 strips 09/05/23 01/16/24 Rx Guide test strips) empagliflozin 10 mg tablet 10 mg PO QAM #90 tabs 09/16/23 01/16/24 Rx (Jardiance) trazodone 100 mg tablet 100 mg PO HS #90 tabs 09/16/23 01/16/24 Rx atorvastatin 20 mg tablet 20 mg PO QPM #90 tabs 10/20/23 01/16/24 Rx ferrous sulfate 325 mg (65 mg 325 mg PO BID 10/20/23 01/16/24 History iron) tablet semaglutide 1 mg/dose (4 mg/3 mL) 1 mg (0.75 mL) subcut .weekly #9 mL 10/23/23 01/16/24 Rx subcutaneous pen injector benzonatate 200 mg capsule 200 mg PO TID PRN cough #30 caps 11/04/23 01/16/24 Rx finasteride 5 mg tablet 5 mg PO QAM #90 tabs 11/04/23 01/16/24 Rx pantoprazole 40 mg tablet,delayed 40 mg PO BID #180 tabs 11/04/23 01/16/24 Rx release (Protonix) amoxicillin 875 mg-potassium 1 tab PO BID #20 tabs 11/17/23 01/16/24 Rx clavulanate 125 mg tablet galcanezumab-gnlm 120 mg/mL 120 mg subcut MONTHLY #1 mL 11/25/23 01/16/24 Rx subcutaneous pen injector (Emgality Pen) rizatriptan 10 mg disintegrating 10 mg PO UD PRN Headache #27 tabs 11/25/23 01/16/24 Rx tablet (Maxalt-CRISIS SPECIALIST) atovaquone 250 mg-proguanil 100 mg See Rx Instructions PO .COMPLEX 11/30/23 01/16/24 Rx tablet #20 tabs ubrogepant 100 mg tablet (Ubrelvy) 100 mg PO DAILY PRN migraine 12/12/23 01/16/24 Rx headache #10 tabs atomoxetine 40 mg capsule 80 mg (2 x 40 mg) PO DAILY #30 caps 12/22/23 01/16/24 Rx baclofen 10 mg tablet 10 mg PO Q8H PRN Pain #270 tabs 01/05/24 01/16/24 Rx lisinopril 20 mg tablet 20 mg PO QAM #90 tabs 01/06/24 01/16/24 Rx acitretin 25 mg capsule 25 mg PO Q OTHER DAY 01/16/24 01/16/24 History eluxadoline 100 mg tablet (Viberzi) 100 mg PO BID PRN IBS 01/16/24 01/16/24 History pramipexole 0.25 mg tablet 0.25 mg PO QPM 01/16/24 01/16/24 History Patient History Medical History Incontinence Chronic kidney disease, stage 3 Kidney stones Seasonal allergic rhinitis Hx of skin cancer, basal cell History of stomach ulcers History of blood transfusion Coccydynia Uses a donut pillow when sitting Had RFA that did not work IBS (irritable bowel syndrome) Surgical History History of urologic surgery cysto, laser stone destruction (07/28/23): LMA igel 4 at [facility] Hx of bilateral cataract extraction Hx of basal cell carcinoma excision Status post cystoscopy multiple Hx of transurethral resection of prostate (~2021) History of eyelid surgery History of herniorrhaphy History of tonsillectomy History of esophagogastroduodenoscopy (EGD) History of colonoscopy H/O total knee replacement (~2013) left Hx of lithotripsy History of lumbar fusion x2 Cervical vertebral fusion (~2014) Family History Father Prostate cancer Diabetes Cardiac disorder Hypertension Mother Diabetes Breast cancer Hypertension Stroke Grandfather Myocardial infarction Other No family history of adverse response to anesthesia Denies family history of Ovarian cancer Crohn's disease Lung cancer Colorectal cancer Ulcerative colitis Social History Smoking Status: Never smoker Second Hand Exposure: No; Do You Dip or Chew Tobacco: No; Hx Alcohol Use: Yes Alcohol type: other Alcohol Intake Frequency: Monthly or Less Hx Substance Use: No Preferred Language: [place] Communication Ability: Effective Visual Impairment: No Limitations Hearing Ability: Use of Hearing Aid Pv Design Engineer Required: No Beliefs That Will Affect Care: None marital status: Current Living Situation: Spouse current occupational status: retired 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 How many Children do You have: 0 Feels Safe at Home: Yes Childhood Exposure to Second-Hand Smoke: Yes Diet: regular caffeine: Yes (2 coffees daily) Dental Care, Regularly: Yes Physical Activity Frequency: Daily Seatbelt Use: always Sunscreen Use: Yes Do you think of yourself as: straight/heterosexual Gender Identity: Male Assistive Devices: None Review of Systems Constitutional: no fever Eyes: no problem reported Ear, Nose, Mouth, Throat: no problem reported Respiratory: no cough and no dyspnea Cardiovascular: no chest pain Gastrointestinal: no abdominal pain, no nausea, no vomiting and no diarrhea/loose stools Genitourinary: no dysuria, no urinary hesitancy or no hematuria Integumentary: no rash Neurologic: no headache(s), no confusion and no problem reported Physical Exam Constitutional: not ill appearing Eyes: PERRL, conjunctivae normal, anicteric sclerae ENMT: external ear and nose normal, oropharynx normal Neck: trachea midline, no thyromegaly Respiratory: normal respiratory effort, lungs clear to auscultation Cardiovascular: RRR, no murmur, no edema Gastrointestinal (Abdomen): normal bowel sounds, soft, nontender, no hepatosplenomegaly Skin: no rashes, warm and dry Neurologic: Speech / Cognition: normal speech and normal cognition Results & Data Vital Signs (Past 12 Hours) Vital Signs Temp Pulse Pulse Resp BP BP Pulse Ox 01/17/24 08:20 94 H 01/17/24 08:03 36.5 C 100 H 15 103/72 96 01/17/24 02:46 36.7 C 82 16 111/74 96 01/16/24 22:46 36.6 C 86 18 107/71 95 01/16/24 22:04 88 O2 Del Method 01/17/24 08:20 01/17/24 08:03 Room Air 01/17/24 02:46 Room Air 01/16/24 22:46 Room Air 01/16/24 22:04 Laboratory Results Laboratory Results WBC 9.26 K/ul (4.8-10.8) 01/17/24 05:24 RBC 4.71 M/uL (4.70-6.10) 01/17/24 05:24 Hgb 15.8 g/dl (14.0-18.0) 01/17/24 05:24 Hct 45.0 % (42.0-52.0) 01/17/24 05:24 MCV 95.5 fL (80.0-100.0) 01/17/24 05:24 MCH 33.5 pg (25.0-34.0) 01/17/24 05:24 MCHC 35.1 g/dL (32.0-36.0) 01/17/24 05:24 RDW Std Deviation 44.4 fL (36.4-46.3) 01/17/24 05:24 RDW Coeff of Estefanía 12.5 % (11.5-14.5) 01/17/24 05:24 Plt Count 313 K/uL (130-400) 01/17/24 05:24 MPV 9.3 fL (9.4-12.4) L 01/17/24 05:24 Immature Gran % (Auto) 0.5 % 01/17/24 05:24 Neut % (Auto) 61.6 % 01/17/24 05:24 Lymph % (Auto) 16.8 % 01/17/24 05:24 [place] % (Auto) 18.0 % 01/17/24 05:24 Eos % (Auto) 2.3 % 01/17/24 05:24 Baso % (Auto) 0.8 % 01/17/24 05:24 Neut # (Auto) 5.70 K/uL (1.40-6.50) 01/17/24 05:24 Lymph # (Auto) 1.56 K/uL (1.20-3.40) 01/17/24 05:24 [place] # (Auto) 1.67 K/uL (0.11-0.59) H 01/17/24 05:24 Eos # (Auto) 0.21 K/uL (0.00-0.50) 01/17/24 05:24 Baso # (Auto) 0.07 K/uL (0.00-0.20) 01/17/24 05:24 Immature Gran # (Auto) 0.05 K/uL (0.01-0.20) 01/17/24 05:24 Sodium 129 mmol/L (136-145) L 01/17/24 05:24 Potassium 4.6 mmol/L (3.5-5.1) 01/17/24 05:24 Chloride 94 mmol/L (98-107) L 01/17/24 05:24 Carbon Dioxide 26 mmol/L (21-32) 01/17/24 05:24 Anion Gap 9 (3-11) 01/17/24 05:24 BUN 42 mg/dl (6-23) H 01/17/24 05:24 Creatinine 2.14 mg/dl (0.6-1.4) H 01/17/24 05:24 Est Cr Clr Drug Dosing 29.3 ml/min 01/17/24 05:24 eGFR 31.89 01/17/24 05:24 BUN/Creatinine Ratio 19.6 (10-20) 01/17/24 05:24 Glucose 139 mg/dl (70-99(Fasting)) H 01/17/24 05:24 POC Glucose 132 mg/dl (70-99) H 01/17/24 08:14 Osmolality 273 mOsm/kg (280-300) L 01/16/24 17:51 Calcium 10.6 mg/dl (8.6-10.3) H 01/17/24 05:24 Phosphorus 3.6 mg/dl (2.5-4.9) 01/16/24 09:20 Magnesium 2.0 mg/dl (1.7-2.4) 01/17/24 05:24 Urine Color Yellow 01/16/24 Unknown Urine Appearance Clear (Clear) 01/16/24 Unknown Urine pH 5.5 (4.5-7.5) 01/16/24 Unknown Ur Specific [place] 1.013 (1.000-1.030) 01/16/24 Unknown Urine Protein Negative (Negative) 01/16/24 Unknown Urine Glucose (UA) 3+ (Negative) H 01/16/24 Unknown Urine Ketones Negative (Negative) 01/16/24 Unknown Urine Blood Negative (Negative) 01/16/24 Unknown Urine Nitrite Negative (Negative) 01/16/24 Unknown Urine Bilirubin Negative (Negative) 01/16/24 Unknown Urine Urobilinogen Negative (Negative) 01/16/24 Unknown Ur Leukocyte Esterase Negative (Negative) 01/16/24 Unknown Urine Osmolality 301 mOsm/kg (500-800) L 01/16/24 Unknown Ur Random Sodium 24 mmol/L 01/16/[address] 01/16/24 09:35 CT head/brain wo con CLINICAL HISTORY: 73 years-old Male with blurred vision, Na 123. Acute blurry vision TECHNIQUE: Multiple axial CT images of the head were obtained without contrast. A dose lowering technique was utilized adhering to the principles of ALARA. CT DOSE: 625.8 mGy.cm COMPARISON: None. FINDINGS: No acute intracranial hemorrhage, midline shift, intracranial mass, hydrocephalus, territorial ischemia or abnormal extra-axial collection. Involutional changes with mild white matter hypodensities likely representing chronic microvascular ischemic disease. The calvarium is intact. The paranasal sinuses, mastoid air cells, and middle ear cavities are clear. IMPRESSION: No acute intracranial abnormality. ACT 112: Negative or not required by law. The above report was generated using voice recognition software. It may contain grammatical, syntax or spelling errors. Electronically signed by: Sha Lopez M.D. 01/16/2024 10:27 AM PG Care Time/CCT Total # of Minutes Spent Total Time Spent with Patient: Total time spent is greater than 50% in coordination of care (as documented) at patient's floor/unit and/or counseling patient: Coding Level of Care Code 58663 IN/OBS CONSULT LVL 5,80M Diagnoses Hyponatremia E87.1
[2024-01-17 13:16] LABS: BUN Creatinine Ratio 19.9 (10-20); Calcium 10.6 mg/dl (8.6-10.3); Creatinine Clr Calc Pharmacy 29.7 ml/min; Potassium 4.7 mmol/L (3.5-5.1)
[2024-01-17 18:37] LABS: Hematocrit (blood only) 43.4 % (42.0-52.0); Hemoglobin 15.5 g/dl (14.0-18.0); Mean Corpuscular Hemoglobin 33.8 pg (25.0-34.0); Mean Corpuscular Hgb Conc 35.7 g/dL (32.0-36.0); Mean Corpuscular Volume 94.6 fL (80.0-100.0); Mean Platelet Volume 9.2 fL (9.4-12.4); Platelet Count 310 K/uL (130-400); RDW Coefficient of Variation 12.6 % (11.5-14.5); RDW Standard Deviation 43.8 fL (36.4-46.3); Red Blood Count 4.59 M/uL (4.70-6.10)
[2024-01-17 18:50] LABS: Calcium 10.6 mg/dl (8.6-10.3); Creatinine Clr Calc Pharmacy 26.7 ml/min; Potassium 5.2 mmol/L (3.5-5.1)
[2024-01-17 21:32] LABS: C Reactive Protein 0.7 mg/dl (0-0.5)
[2024-01-18 06:19] LABS: Calcium 10.2 mg/dl (8.6-10.3); Creatinine Clr Calc Pharmacy 23.1 ml/min; Potassium 4.8 mmol/L (3.5-5.1)
--- NOTE | 2024-01-18 08:18 | Hospitalist Progress Note ---
Date of Service January 17, 2024 Assessment & Plan (1) Hyponatremia: Plan: Acute - Admit to med/tele - Diabetic diet - Fluid restriction at 1200 ml/day - Obtain urine and serum osmolality, random urine Na level - Cap IVF - sodium improving. (2) CKD (chronic kidney disease) stage 3, GFR 30-59 ml/min: Plan: Chronic - Creatinine at baseline - Avoid nephrotoxic meds and renally adjust meds where appropriate - Creatinine now rising, will monitor. (3) Type 2 diabetes mellitus with chronic kidney disease: Plan: Chronic - Diabetic diet ordered - Most recent A1c obtained today 7% - Med reconciliation not completed, but when done, may resume home diabetic regimen. Appears to be on combination of GLP1 + metformin - Noninsulin dependent, no SSI or basal insulin needed - Fasting accuchecks ordered once daily in AM, if >180 add log with meals (4) HTN (hypertension): Plan: Chronic - Continue lisinopril and amlodipine - BP well controlled Plan Other stable medical issues: 1. IBS-D - continue eluxadoline and prn Lomotil 2. MINA - continue ferrous sulfate 3. BPH - continue finasteride and tamsulosin 4. Migraine headaches - continue emgality & prn rizatriptan 5. GERD - continue pantoprazole 6. RLS - continue pramipexole Lovenox VTE proph/ Admission and Anticipated Discharge Date Admission Date: January 16, 2024 Subjective 73 yo male reports no new symptoms. Review of Systems Review of Systems: All systems reviewed & are unremarkable except as noted in HPI & below Physical Exam Physical Exam: GENERAL: 73 yo well-nourished elderly M. NAD. EYES: EOMI. PERRLA. Anicteric. HENT: Moist mucous membranes. No scleral icterus. No cervical lymphadenopathy. LUNGS: Clear to auscultation bilaterally. No accessory muscle use. No W/R/R. CARDIOVASCULAR: Regular rate and rhythm. +systolic murmur ABDOMEN: Soft, non-tender and non-distended. BS normoactive x 4 quad. EXTREMITIES: No edema. Non-tender. Peripheral pulses +2/4. NEUROLOGIC: A&O x3. No focal neurological deficits. CN II-XII grossly intact. PSYCHIATRIC: Cooperative. Appropriate mood and affect. SKIN: Warm, dry, intact. No rashes or lesions. Results & Data Results & Data Vital Signs (Past 12 Hours) Vital Signs Temp Pulse Pulse Resp BP Pulse Ox O2 Del Method 01/18/24 07:36 36.6 C 109 H 20 104/76 98 Room Air 01/18/24 07:35 99 H 01/18/24 07:09 36.4 C L 101 H 18 83/45 L 100 Room Air 01/18/24 02:45 36.5 C 81 16 91/63 L 95 Room Air 01/17/24 22:33 36.5 C 85 16 97/60 L 95 Room Air 01/17/24 21:55 87 PG Care Time/CCT Total # of Minutes Spent Total Time Spent with Patient: Total time spent is greater than 50% in coordination of care (as documented) at patient's floor/unit and/or counseling patient: Coding Level of Care Code 57817 SUB INP/OBS CARE 2/35MIN Diagnoses Hyponatremia E87.1 Stage 3a chronic kidney disease N18.31 Chronic kidney disease stage 3 subtype: stage 3a (GFR 45-59) Type 2 diabetes mellitus with stage 3b chronic kidney disease, without long-term current use of insulin E11.22; N18.32 Chronic kidney disease stage: stage 3 (moderate) Chronic kidney disease stage 3 subtype: stage 3b (GFR 30-44) Diabetes mellitus nursing home insulin use: without nursing home use HTN (hypertension) I10 (2) CKD (chronic kidney disease) stage 3, GFR 30-59 ml/min Chronic kidney disease stage 3 subtype: stage 3a (GFR 45-59) Qualified Code(s): N18.31 - Chronic kidney disease, stage 3a (3) Type 2 diabetes mellitus with chronic kidney disease Chronic kidney disease stage: stage 3 (moderate) Chronic kidney disease stage 3 subtype: stage 3b (GFR 30-44) Diabetes mellitus nursing home insulin use: without nursing home use Qualified Code(s): E11.22 - Type 2 diabetes mellitus with diabetic chronic kidney disease; N18.32 - Chronic kidney disease, stage 3b
--- NOTE | 2024-01-18 09:03 | Nephrology Progress Note ---
Date of Service January 18, 2024 Assessment & Plan (1) Hyponatremia: Plan: * Hypoosmolar hyponatremia detected on routine outpatient laboratory testing * Weakness resolved. Now clinically euvolemic to mildly volume contracted. Ambulates in room unassisted * Elevated Uosm and Saumya more consistent w/ SIADH than free water intoxication * Currently on 1200 cc/day free water restriction and NaCl 1 g po BID * Serum Na is now within an acceptable range at 131 mmol/L this am * Serum Cr has risen to 2.6. Patient denies difficulty voiding * I have placed orders in EMR for nonfasting blood and urine studies to be completed 1-2 days prior to outpatient visit * insurance service representative staff given task to schedule outpatient appointment in approx 1 week * Repeat BMP this afternoon. If clinically improved, sodium stable to improved and creatinine trending down, then OK to discharge from nephrology perspective (2) Tachycardia: Plan: * Telemetry reviewed this am w/ tech - sinus tachycardia w/ HR 90-120 bpm overnight * SBP 80-100 overnight * Will order 1 L NS IV, repeat vitals and BMP this afternoon. Discussed w/ primary service Admission and Anticipated Discharge Date Admission Date: January 16, 2024 Subjective Mr. Garcia was evaluated in his hospital room this morning. He denied dy spnea, angina or uremic symptoms. He has been tolerating NaCl tablets without side effect. He reports that BP has been low overnight and HR mildly elevated. He otherwise feels well and hopes to return home soon Review of Systems Constitutional: no fever Eyes: no problem reported Ear, Nose, Mouth, Throat: no problem reported Respiratory: no cough and no dyspnea Cardiovascular: no chest pain Gastrointestinal: no abdominal pain, no nausea, no vomiting and no diarrhea/loose stools Genitourinary: no dysuria, no urinary hesitancy or no hematuria Integumentary: no rash Neurologic: no headache(s), no confusion and no problem reported Physical Exam Constitutional: not ill appearing Eyes: PERRL, conjunctivae normal, anicteric sclerae ENMT: external ear and nose normal, oropharynx normal Neck: trachea midline, no thyromegaly Respiratory: normal respiratory effort, lungs clear to auscultation Cardiovascular: RRR, no murmur, no edema Gastrointestinal (Abdomen): normal bowel sounds, soft, nontender, no hepatosplenomegaly Skin: no rashes, warm and dry Neurologic: Speech / Cognition: normal speech and normal cognition Results & Data Vital Signs (Past 12 Hours) Vital Signs Temp Pulse Pulse Resp BP Pulse Ox O2 Del Method 01/18/24 07:36 36.6 C 109 H 20 104/76 98 Room Air 01/18/24 07:35 99 H 01/18/24 07:09 36.4 C L 101 H 18 83/45 L 100 Room Air 01/18/24 02:45 36.5 C 81 16 91/63 L 95 Room Air 01/17/24 22:33 36.5 C 85 16 97/60 L 95 Room Air 01/17/24 21:55 87 Laboratory Results Laboratory Results - last 24 hr 01/17/24 01/17/24 01/17/24 12:44 18:10 18:10 WBC 10.70 RBC 4.59 L Hgb 15.5 Hct 43.4 MCV 94.6 MCH 33.8 MCHC 35.7 RDW Std Deviation 43.8 RDW Coeff of Estefanía 12.6 Plt Count 310 MPV 9.2 L Sodium 127 L 129 L Potassium 4.7 5.2 H Chloride 94 L 98 Carbon Dioxide 24 23 Anion Gap 9 8 BUN 42 H 47 H Creatinine 2.11 H 2.35 H Est Cr Clr Drug Dosing 29.7 26.7 eGFR 32.44 28.51 BUN/Creatinine Ratio 19.9 20.0 Glucose 127 H 127 H POC Glucose Calcium 10.6 H 10.6 H C-Reactive Protein 0.70 H Cancelled Procalcitonin Cancelled Ref Lab Test Result Pending 01/18/24 01/18/24 05:14 08:02 WBC RBC Hgb Hct MCV MCH MCHC RDW Std Deviation RDW Coeff of Estefanía Plt Count MPV Sodium 131 L Potassium 4.8 Chloride 97 L Carbon Dioxide 25 Anion Gap 9 BUN 56 H Creatinine 2.67 H D Est Cr Clr Drug Dosing 23.1 eGFR 24.46 BUN/Creatinine Ratio 21.0 H Glucose 139 H POC Glucose 125 H Calcium 10.2 C-Reactive Protein Procalcitonin Ref Lab Test Result PG Care Time/CCT Total # of Minutes Spent Total Time Spent with Patient: Total time spent is greater than 50% in coordination of care (as documented) at patient's floor/unit and/or counseling patient: Coding Level of Care Code 37539 SUB INP/OBS CARE 3/50MIN Diagnoses Hyponatremia E87.1 Tachycardia R00.0
[2024-01-18] MEDS: SODIUM CHLORIDE 0.9% 1,000 ML IV SCH (09:30)
[2024-01-18] MEDS: ACITRETIN 25 MG EXT SCH (09:54)
[2024-01-18 14:50] LABS: BUN Creatinine Ratio 21.1 (10-20); Calcium 9.3 mg/dl (8.6-10.3); Creatinine Clr Calc Pharmacy 24.1 ml/min; Potassium 4.9 mmol/L (3.5-5.1)
--- NOTE | 2024-01-18 22:09 | Hospitalist Progress Note ---
Date of Service January 18, 2024 Assessment & Plan (1) Hyponatremia: Plan: Acute - Admit to med/tele - Diabetic diet - Added more IVF as patient developed BRIANNA. - Obtain urine and serum osmolality, random urine Na level - Cap IVF - sodium improving. (2) CKD (chronic kidney disease) stage 3, GFR 30-59 ml/min: Plan: Chronic on acute kidney failure - Creatinine at baseline - Avoid nephrotoxic meds and renally adjust meds where appropriate - Creatinine now rising, added IVF. (3) Type 2 diabetes mellitus with chronic kidney disease: Plan: Chronic - Diabetic diet ordered - Most recent A1c obtained today 7% - Med reconciliation not completed, but when done, may resume home diabetic regimen. Appears to be on combination of GLP1 + metformin - Noninsulin dependent, no SSI or basal insulin needed - Fasting accuchecks ordered once daily in AM, if >180 add log with meals (4) HTN (hypertension): Plan: Chronic - amlodipine but holding lisinopril due to BRIANNA - BP well controlled Plan Other stable medical issues: 1. IBS-D - continue eluxadoline and prn Lomotil 2. MINA - continue ferrous sulfate 3. BPH - continue finasteride and tamsulosin 4. Migraine headaches - continue emgality & prn rizatriptan 5. GERD - continue pantoprazole 6. RLS - continue pramipexole Lovenox VTE proph/ Admission and Anticipated Discharge Date Admission Date: January 16, 2024 Subjective Patient is doing well. Patient feels that Review of Systems Review of Systems: All systems reviewed & are unremarkable except as noted in HPI & below Physical Exam Physical Exam: GENERAL: 73 yo well-nourished elderly M. NAD. EYES: EOMI. PERRLA. Anicteric. HENT: Moist mucous membranes. No scleral icterus. No cervical lymphadenopathy. LUNGS: Clear to auscultation bilaterally. No accessory muscle use. No W/R/R. CARDIOVASCULAR: Regular rate and rhythm. +systolic murmur ABDOMEN: Soft, non-tender and non-distended. BS normoactive x 4 quad. EXTREMITIES: No edema. Non-tender. Peripheral pulses +2/4. NEUROLOGIC: A&O x3. No focal neurological deficits. CN II-XII grossly intact. PSYCHIATRIC: Cooperative. Appropriate mood and affect. SKIN: Warm, dry, intact. No rashes or lesions. Results & Data Results & Data Vital Signs (Past 12 Hours) Vital Signs Temp Pulse Pulse Resp BP BP Pulse Ox 01/18/24 20:18 36.6 C 92 H 20 113/74 97 01/18/24 16:08 100 H 01/18/24 15:58 36.5 C 91 H 20 104/71 97 01/18/24 12:21 36.6 C 101 H 18 102/69 100 O2 Del Method 01/18/24 20:18 Room Air 01/18/24 16:08 01/18/24 15:58 Room Air 01/18/24 12:21 Room Air PG Care Time/CCT Total # of Minutes Spent Total Time Spent with Patient: Total time spent is greater than 50% in coordination of care (as documented) at patient's floor/unit and/or counseling patient: Coding Level of Care Code 09510 SUB INP/OBS CARE 3/50MIN Diagnoses Hyponatremia E87.1 Stage 3a chronic kidney disease N18.31 Chronic kidney disease stage 3 subtype: stage 3a (GFR 45-59) Type 2 diabetes mellitus with stage 3b chronic kidney disease, without long-term current use of insulin E11.22; N18.32 Chronic kidney disease stage: stage 3 (moderate) Chronic kidney disease stage 3 subtype: stage 3b (GFR 30-44) Diabetes mellitus industrial maintenance instructor insulin use: without custodial use HTN (hypertension) I10 (2) CKD (chronic kidney disease) stage 3, GFR 30-59 ml/min Chronic kidney disease stage 3 subtype: stage 3a (GFR 45-59) Qualified Code(s): N18.31 - Chronic kidney disease, stage 3a (3) Type 2 diabetes mellitus with chronic kidney disease Chronic kidney disease stage: stage 3 (moderate) Chronic kidney disease stage 3 subtype: stage 3b (GFR 30-44) Diabetes mellitus industrial maintenance instructor insulin use: without custodial use Qualified Code(s): E11.22 - Type 2 diabetes mellitus with diabetic chronic kidney disease; N18.32 - Chronic kidney disease, stage 3b
[2024-01-18] MEDS: SODIUM CHLORIDE 0.9% 500 ML IV SCH (22:37)
[2024-01-18 22:50] VITALS: RESP 18
[2024-01-19 02:46] VITALS: O2SAT 97
[2024-01-19 06:55] LABS: BUN Creatinine Ratio 23.2 (10-20); Calcium 9.5 mg/dl (8.6-10.3); Creatinine Clr Calc Pharmacy 29.7 ml/min; Potassium 4.8 mmol/L (3.5-5.1)
--- NOTE | 2024-01-19 08:57 | Nephrology Progress Note ---
Date of Service January 19, 2024 Assessment & Plan (1) Hyponatremia: Plan: * Hypoosmolar hyponatremia detected on routine outpatient laboratory testing * Weakness resolved. Now clinically euvolemic to mildly volume contracted. Ambulates in room unassisted * Elevated Uosm and Saumya more consistent w/ SIADH than free water intoxication * Currently on 1200 cc/day free water restriction and NaCl 1 g po BID * Serum Na improved to 134 mmol/L this am * Serum Cr is now at baseline 2.07 * I have placed orders in EMR for nonfasting blood and urine studies to be completed 1-2 days prior to outpatient visit * svp research and strategic analysis staff given task to schedule outpatient appointment in approx 1 week * OK to discharge to home from nephrology perspective. Recommend stop NaCl tablet at this time. I have advised patient to liberalize NaCl in his diet (2) Tachycardia: Plan: * Resolved * HR 70-90 last 24 hours. Regular rhythm on exam Admission and Anticipated Discharge Date Admission Date: January 16, 2024 Subjective Mr. Garcia was evaluated in his hospital room this morning. He denied dyspnea, angina or uremic symptoms. He has been tolerating NaCl tablets without side effect. He reports that BP has improved and HR is now normal He hopes to return home soon Review of Systems Constitutional: no fever Eyes: no problem reported Ear, Nose, Mouth, Throat: no problem reported Respiratory: no cough and no dyspnea Cardiovascular: no chest pain Gastrointestinal: no abdominal pain, no nausea, no vomiting and no diarrhea/loose stools Genitourinary: no dysuria, no urinary hesitancy or no hematuria Integumentary: no rash Neurologic: no headache(s), no confusion and no problem reported Physical Exam Constitutional: not ill appearing Eyes: PERRL, conjunctivae normal, anicteric sclerae ENMT: external ear and nose normal, oropharynx normal Neck: trachea midline, no thyromegaly Respiratory: normal respiratory effort, lungs clear to auscultation Cardiovascular: RRR, no murmur, no edema Gastrointestinal (Abdomen): normal bowel sounds, soft, nontender, no hepatosplenomegaly Skin: no rashes, warm and dry Neurologic: Speech / Cognition: normal speech and normal cognition Results & Data Vital Signs (Past 12 Hours) Vital Signs Temp Pulse Pulse Resp BP Pulse Ox O2 Del Method 01/19/24 07:58 36.6 C 86 18 111/69 97 Room Air 01/19/24 07:20 79 01/19/24 02:35 36.5 C 77 18 110/72 97 Room Air 01/18/24 22:38 36.4 C L 77 18 101/65 95 Room Air 01/18/24 21:45 90 Laboratory Results Laboratory Results - last 24 hr 01/18/24 01/19/24 01/19/24 14:11 05:55 08:02 Sodium 132 L 134 L Potassium 4.9 4.8 Chloride 102 103 Carbon Dioxide 24 25 Anion Gap 6 6 BUN 54 H 48 H Creatinine 2.56 H 2.07 H D Est Cr Clr Drug Dosing 24.1 29.7 eGFR 25.72 33.19 BUN/Creatinine Ratio 21.1 H 23.2 H Glucose 132 H 115 H POC Glucose 126 H Calcium 9.3 9.5 PG Care Time/CCT Total # of Minutes Spent Total Time Spent with Patient: Total time spent is greater than 50% in coordination of care (as documented) at patient's floor/unit and/or counseling patient: Coding Level of Care Code 02363 SUB INP/OBS CARE 3/50MIN Diagnoses Hyponatremia E87.1 Tachycardia R00.0
[2024-01-19] MEDS: ENOXAPARIN INJ 30 MG/0.3 ML SYR SQ SCH (10:46)
[2024-01-19 11:38] VITALS: BP 99/57; TEMP 98.1
[2024-01-19 12:05] VITALS: PULSE 86
--- NOTE | 2024-01-23 10:44 | Discharge Summary ---
Discharge Summary Date of Service January 19, 2024 Principal Dx & Hospital Course #1 = Principal Diagnosis (1) Hyponatremia: Acute - Admit to med/tele - Diabetic diet - Added more IVF as patient developed BRIANNA. - Obtain urine and serum osmolality, random urine Na level - Cap IVF - sodium improving. Appreciate input from Nephrology: OK to discharge to home from nephrology perspective. Recommend stop NaCl tablet at this time. I have advised patient to liberalize NaCl in his diet (2) CKD (chronic kidney disease) stage 3, GFR 30-59 ml/min: Chronic on acute kidney failure - Creatinine at baseline - Avoid nephrotoxic meds and renally adjust meds where appropriate - Creatinine antonia and required IVF. (3) Type 2 diabetes mellitus with chronic kidney disease: Chronic - Diabetic diet ordered - Most recent A1c obtained today 7% - Med reconciliation not completed, but when done, may resume home diabetic regimen. Appears to be on combination of GLP1 + metformin - Noninsulin dependent, no SSI or basal insulin needed (4) HTN (hypertension): Chronic - amlodipine but holding lisinopril due to BRIANNA - BP well controlled Plan Other stable medical issues: 1. IBS-D - continue eluxadoline and prn Lomotil 2. MINA - continue ferrous sulfate 3. BPH - continue finasteride and tamsulosin 4. Migraine headaches - continue emgality & prn rizatriptan 5. GERD - continue pantoprazole 6. RLS - continue pramipexole Admission HPI Per Admitting Provider Yoandy is a 73 yo M with a pmhx of DMT2, CKD, IBS-D, HTN, BPH, MINA, and nephrolithiasis who presents to the ER today d/t abnormal labs. He reports that he was seen by his wireworker last month and encouraged to increase his water intake to 3L per day due to recurrence of his kidney stones. He notes that prior to this, he was consuming about 1.5-2L of water per day. He had follow up blood work today that demonstrated a sodium of 123. He was contacted by his PCP and instructed to come to the ER. Upon arrival, he was awake and alert, in no distress. His vital signs are stable. ER physician began IVF with NSS at 80 ml/hr. Patient denies chest pain, increased dyspnea, orthopnea, LE edema, or n/v/d. He does not take any diuretics per his last PCP note. Medication reconciliation not yet completed. He has been referred to the hospital medicine team for admission. Discharge Exam GENERAL: 73 yo well-nourished elderly M. NAD. EYES: EOMI. PERRLA. Anicteric. HENT: Moist mucous membranes. No scleral icterus. No cervical lymphadenopathy. LUNGS: Clear to auscultation bilaterally. No accessory muscle use. No W/R/R. CARDIOVASCULAR: Regular rate and rhythm. +systolic murmur ABDOMEN: Soft, non-tender and non-distended. BS normoactive x 4 quad. EXTREMITIES: No edema. Non-tender. Peripheral pulses +2/4. NEUROLOGIC: A&O x3. No focal neurological deficits. CN II-XII grossly intact. PSYCHIATRIC: Cooperative. Appropriate mood and affect. SKIN: Warm, dry, intact. No rashes or lesions. Discharge Plan Discharge Items Patient Disposition: Home - Self-Care Reason For Visit: HYPONATREMIA Discharge Diagnosis: hyponatremia Activity: Resume your previous activity Non-emergency contact: Primary Care Provider Call non-emergency contact if: you have any medication questions Follow-up/Referrals: Khloe Mejia MD [Primary Care Provider] - 01/27/24 3:00 pm Diet: Regular and Carb Consistent or DM2 Addtl Attending Provider Instructions: Dr. Mcgraw ordered blood work and urine studies to be completed 1-2 days prior to an outpatient visit. The Nursing staff will schedule your appointment in about one week. You can liberalize your sodium intake in your diet. We will hold your lisinopril until you followup with either your PCP or your Condenser Winder. Pending Studies at Discharge: No Stand-Alone Forms: My [facility] [place], Smoking Cessation Medications and DC Order Prescriptions: Continued hydrocortisone 2.5 % cream 1 applic topical DAILY PRN (Reason: skin irritation) Qty: 30 1RF Rx Instructions: Apply to areas of the face daily for up to 7 days as needed for flaring. valacyclovir [Valtrex] 500 mg tablet 500 mg PO QAM Qty: 90 3RF metformin 500 mg tablet 500 mg PO QPM Qty: 90 3RF (DME) lancets [Accu-Chek Fastclix Lancet Drum] Misc See Rx Instructions .Route Qty: 100 3RF Rx Instructions: use to test once daily amlodipine 5 mg tablet 5 mg PO QAM Qty: 90 3RF ketoconazole 2 % shampoo 1 applic TOP .COMPLEX Qty: 360 3RF Rx Instructions: Wash scalp twice weekly. Let sit for 5 minutes prior to rinsing. desloratadine [Clarinex] 5 mg tablet 5 mg PO QAM Qty: 90 3RF (DME) Accu-Chek Guide test strips Strip See Rx Instructions .ROUTE .COMPLEX Qty: 100 3RF Dose Instruction: USE TO TEST ONCE DAILY Rx Instructions: USE TO TEST ONCE DAILY atorvastatin 20 mg tablet 20 mg PO QPM Qty: 90 3RF finasteride 5 mg tablet 5 mg PO QAM Qty: 90 3RF pantoprazole [Protonix] 40 mg tablet,delayed release (DR/EC) 40 mg PO BID Qty: 180 3RF atovaquone-proguanil 250-100 mg tablet See Rx Instructions PO .COMPLEX Qty: 20 0RF Rx Instructions: Take 1 tab once daily x1 day before exposure, during time in area, and x7 days after leaving area-- for [place] trip Ubrelvy 100 mg tablet 100 mg PO DAILY PRN (Reason: migraine headache) Qty: 10 5RF baclofen 10 mg tablet 10 mg PO Q8H PRN (Reason: Pain) Qty: 270 0RF Rx Instructions: TAKE 1 TABLET EVERY 8 HOURS NEEDED FOR PAIN Trintellix 10 mg tablet 10 mg PO QAM trazodone 100 mg tablet 100 mg PO HS Qty: 90 3RF Jardiance 10 mg tablet 10 mg PO QAM Qty: 90 3RF rizatriptan [Maxalt-MANAGER PUBLISHING] 10 mg tablet,disintegrating 10 mg PO UD MDD 20mg PRN (Reason: Headache) Qty: 27 3RF Rx Instructions: 10 mg orally PRN; may repeat after two hours prn Emgality Pen 120 mg/mL pen injector 120 mg subcut MONTHLY Qty: 1 11RF Botox 200 unit recon soln 1 unit subcut UD Rx Instructions: from PM, Migraine, every 3 months semaglutide 1 mg/dose (4 mg/3 mL) pen injector 1 mg subcut .weekly Qty: 9 2RF benzonatate 200 mg capsule 200 mg PO TID PRN (Reason: cough) Qty: 30 0RF Rx Instructions: must be swallowed whole never chewed/crushed diphenoxylate-atropine [Lomotil] 2.5-0.025 mg tablet 1 tab PO TID PRN (Reason: diarrhea) betamethasone dipropionate 0.05 % ointment 1 applic TOP BID PRN (Reason: psoriasis) Hold Instructions: Elevated Vitamin D Rx Instructions: Apply to areas of the trunk and extremities twice daily x 2 weeks as directed. cyanocobalamin (vitamin B-12) [Vitamin B-12] 2,000 mcg Tablet Extended Release 2,000 mcg PO QAM azelastine 137 mcg (0.1 %) aerosol,spray 1 spray intranasal DAILY Rx Instructions: administer into each nostril amoxicillin 500 mg tablet 2,000 mg PO UD Rx Instructions: Take 30min prior to dental procedure fluticasone propionate 50 mcg/actuation spray,suspension 2 spray intranasal DAILY PRN (Reason: allergies) Rx Instructions: USE 2 SPRAYS NASALLY DAILY pimecrolimus [Elidel] 1 % cream 1 applic TOP BID PRN (Reason: Rash) Rx Instructions: Apply to areas of the groin twice daily as directed. acitretin 25 mg capsule 25 mg PO Q OTHER DAY pramipexole 0.25 mg tablet 0.25 mg PO QPM Viberzi 100 mg tablet 100 mg PO BID PRN (Reason: IBS) Rx Instructions: must administer with a meal/food No Action atomoxetine 40 mg capsule 100 mg PO DAILY clonazepam 1 mg tablet 1 mg PO BID telmisartan 20 mg tablet 10 mg PO DAILY Qty: 45 3RF Discharge Orders: Discharge Order (Routine); Ordered 01/19/24 Ordered By: Kendall Montoya Admission Data Admit Date/Time: 01/16/24 11:52 Attending Provider: Kendall Montoya Admit Provider: Juan Bunn Primary Care Provider: Khloe Mejia Other Providers: Juan Bunn; Ang Mcgraw Other Interventions: Discharge Summary Assessment (RN) Last Done: 01/19/24 12:02 Hospital Stay Data Consultations 01/16/24 11:04 ED Decision to Admit Stat 01/16/24 20:56 Consult Nephrology Routine Diagnostic Imagining Performed 01/16/24 09:35 CT head/brain wo con Stat Pending Results Patient Have Any Pending Studies at Discharge: No Discharge Instructions Given to Patient (Per Discharging Provider) Dr. Mcgraw ordered blood work and urine studies to be completed 1-2 days prior to an outpatient visit. The Nursing staff will schedule your appointment in about one week. You can liberalize your sodium intake in your diet. We will hold your lisinopril until you followup with either your PCP or your Condenser Winder. Total Time Total Time Spent Total Time Spent (In Minutes): 32 Coding Level of Care Code 40863 INP/OBS DISCH >30 MIN Diagnoses Hyponatremia E87.1 Stage 3a chronic kidney disease N18.31 Chronic kidney disease stage 3 subtype: stage 3a (GFR 45-59) Type 2 diabetes mellitus with stage 3b chronic kidney disease, without long-term current use of insulin E11.22; N18.32 Diabetes mellitus usp insulin use: without termite technician use Chronic kidney disease stage: stage 3 (moderate) Chronic kidney disease stage 3 subtype: stage 3b (GFR 30-44) HTN (hypertension) I10
== END 2024-01-19 12:44 | disposition home or self-care (01) | DRG 644 ==
LOC: ED 08:55 → SUATTDRO 11:52 → 2W 11:52